=== PATIENT | male | born 1940 | race Caucasian/White ===

== ENCOUNTER → 2016-07-23 | Outpatient (CLI) | payer MEDICARE, OTHER ==
[~2016-07-23] MED LIST: ASPI81TA85 PO; AVAP300T23 PO; COQ-200C PO; CRES5TAB PO; HYDR25TAB; JANU100T PO; NADO40TA PO; NORV5TAB PO; XARE15TA PO
--- NOTE | 2016-07-23 13:57 | REP ---
Chest two views HISTORY: Bronchitis Comparison: 06/15/2016 Minimal peribronchial cuffing is present. The heart is normal in size. The pulmonary vasculature is normal in appearance. The bony structure is intact. IMPRESSION: There is minimal peribronchial cuffing consistent with asthma or bronchitis. Signed by Shyam Mcghee MD 07/23/2016 01:48 P
== END ==
LOC: M WUC 12:43
PROVIDERS: ATTEND Nurse Practitioner Family
DX: J42 Unspecified chronic bronchitis (principal); Z87.891 Personal history of nicotine dependence

== ENCOUNTER 2016-07-31 07:29 | Inpatient (IN) | payer MEDICARE, OTHER ==
[~2016-07-31] VITALS: Ht 175.3 cm; Wt 90.7 kg
[2016-07-31 08:45] LABS: BASO % 0.2 % (0.0-1.0); EOS # 0.2 K/mm3 (0.0-0.50); EOS % 0.6 % (0.0-3.0); LARGE UNSTAINED CELL # 0.1 K/mm3 (0.0-0.4); LARGE UNSTAINED CELL % 0.5 % (0.0-4.0); LYMPH % 4.1 % (24.0-44.0); MEAN CORPUSCULAR HEMOGLOBIN 31.2 pg (27.0-33.0); MEAN CORPUSCULAR HGB CONC 32.5 g/dl (32.0-36.5); MEAN CORPUSCULAR VOLUME 95.9 fl (80.0-96.0); MONO # 0.9 K/mm3 (0.0-0.8); MONO % 3.6 % (0.0-5.0); NEUTROPHILS # 22.8 K/mm3 (1.8-7.7); PLATELET COUNT, AUTOMATED 224 k/mm3 (150-450); RED CELL DISTRIBUTION WIDTH 13.2 % (11.5-14.5)
[2016-07-31] MEDS ORDERED: IPRATROPIUM 0.5MG/ALBUTEROL 2.5MG INH SOL UD 3ML (DUONEB)(J7620) As Ordered ONE ×2 (08:50→20:48)
[2016-07-31 09:10] LABS: ABG BASE EXCESS 2.9 (-2.0-2.0); ABG DEVICE NASAL CANN; ABG HCO3 27.4 MEQ/L (22.0-26.0); ABG PARTIAL PRESSURE CO2 41.4 mmHg (35.0-45.0); ABG PARTIAL PRESSURE O2 69.9 mmHg (75.0-100.0); ABG STANDARD HCO3 26.9 MEQ/L (22.0-26.0); ABG TOTAL CO2 28.6 MEQ/L (23.0-31.0); ABG pH (ARTERIAL) 7.438 UNITS (7.350-7.450)
[2016-07-31] MEDS ORDERED: HYDR25TAB PO (09:40)
[2016-07-31] MEDS ORDERED: PROA1AER INH (09:40)
[2016-07-31] MEDS ORDERED: AMLO10TA2 PO (09:40)
[2016-07-31] MEDS ORDERED: PRED10TA PO (09:40)
[2016-07-31] MEDS ORDERED: CEFD1CAP8 PO (09:40)
[2016-07-31] MEDS ORDERED: FLON1SPR (09:40)
[2016-07-31] MEDS ORDERED: MOXIFLOXACIN 400 MG/250 ML IV BAG (AVELOX) (J2280) As Ordered ONE (10:04)
[2016-07-31 10:11] LABS: CALCIUM LEVEL 10.1 MG/DL (8.8-10.2); CREATININE FOR GFR 1.79 MG/DL (0.70-1.30); GLOMERULAR FILTRATION RATE 39.4 (>42); POTASSIUM SERUM 4.4 MEQ/L (3.5-5.1)
[2016-07-31] MEDS ORDERED: ASPIRIN 81 MG CHEW TABLET As Ordered ONE (10:33)
--- NOTE | 2016-07-31 10:33 | REP ---
CHEST, TWO VIEWS: HISTORY: Shortness of breath. COMPARISON: 07/23/2016 Minimal peribronchial cuffing is present. Patchy density is present in the right lower lobe consistent with an infiltrate. The left lung is clear. The heart is normal in size. The pulmonary vasculature is normal in appearance. The bony structure is intact. IMPRESSION: Right lower lobe infiltrate. Signed by Shyam Mcghee MD 07/31/2016 10:34 A
--- NOTE | 2016-07-31 12:34 | REP ---
Bilateral lower extremity Duplex Doppler venous ultrasound: Real time compression and duplex Doppler interrogation of the bilateral lower extremity deep venous system is performed. Bilaterally, the common femoral, superficial femoral and popliteal veins are fully compressible with transducer pressure and demonstrate normal spontaneous and phasic flow, without evidence of deep venous thrombosis. Impression: No evidence of deep venous thrombosis of the bilateral lower extremity femoral popliteal venous system. There is a right popliteal cyst measuring 3.2 x 0.8 x 1.4 cm. Signed by Jonathan Dubose MD 07/31/2016 12:26 P
[2016-07-31] MEDS ORDERED: ONDANSETRON 4MG/2ML VIAL (J2405) IV PRN (16:30)
[2016-07-31] MEDS ORDERED: ALBUTEROL 90 MCG/ACT 8GM HFA INHALER INH PRN (17:30)
[2016-07-31] MEDS ORDERED: FLUTICASONE PROP 0.05% NASAL SPRAY 16 GM (FLONASE) PRN (17:30)
[2016-07-31] MEDS ORDERED: IPRATROPIUM 0.5MG/ALBUTEROL 2.5MG INH SOL UD 3ML (DUONEB)(J7620) NEB PRN (17:30)
[2016-07-31] MEDS ORDERED: NITROGLYCERIN 0.4 MG SUBL TABLET SL PRN (17:45)
[2016-07-31] MEDS ORDERED: GLUCOSE 4 GM CHEW TABLET PO PRN (18:15)
[2016-07-31] MEDS ORDERED: GLUCAGON FOR INJ 1 MG VIAL (J1610) SC PRN (18:15)
[2016-07-31] MEDS ORDERED: DEXTROSE 50% 50 ML SYRINGE IV PRN (18:15)
[2016-07-31] MEDS ORDERED: cefTRIAXone SOD 1 GM VIAL (J0696) As Ordered ONE (18:27)
[2016-07-31] MEDS ORDERED: AZITHROMYCIN INJ 500MG VIAL (J0456) As Ordered ONE (19:04)
[2016-07-31 19:10] LABS: MEAN CORPUSCULAR HEMOGLOBIN 31.3 pg (27.0-33.0); MEAN CORPUSCULAR HGB CONC 32.8 g/dl (32.0-36.5); MEAN CORPUSCULAR VOLUME 95.6 fl (80.0-96.0); RED CELL DISTRIBUTION WIDTH 14.1 % (11.5-14.5); WHITE BLOOD COUNT 18.5 K/mm3 (4.0-10.0)
[2016-07-31 19:17] LABS: CALCIUM LEVEL 9.5 MG/DL (8.8-10.2); CREATININE FOR GFR 1.9 MG/DL (0.70-1.30); GLOMERULAR FILTRATION RATE 36.8 (>42); POTASSIUM SERUM 4.4 MEQ/L (3.5-5.1)
--- NOTE | 2016-07-31 19:21 | HPE ---
DATE OF ADMISSION: 07/31/2016 PRIMARY CARE PHYSICIAN: Dr. Cadet CHIEF COMPLAINT: Shortness of breath. HISTORY OF THE PRESENT ILLNESS: The patient is a 76-year-old man who has had persistent rhinorrhea of clear discharge and cough while laying down for greater than 6 months. He has been seen by [facility] (ENT), urgent care on several occasions and his primary care provider. He has completed four courses of antibiotics. Never during any of these episodes has he ever experienced shortness of breath. However, over the last 1 week, he has had progressively worsening shortness of breath and dyspnea on exertion with less and less exertion. The patient was most recently seen by his primary care provider on 07/23/2016 and at that time, given his significant history of tobacco abuse, although he has no pulmonary function tests (PFTs) on file, he was given a course of cefdinir and prednisone. Following taking the prednisone, he was having episodes of shortness of breath as well as epigastric discomfort and as such, he stopped taking the prednisone but continued the antibiotic. Today, he has had 8 days of this. However, today his shortness of breath was so severe that it prompted him to present to the emergency room. At the present time, the patient denies any chest pressure. He denies any change in his cough quality, quantity. He denies any fevers, chills, any active nausea or vomiting. No diaphoresis, simply shortness of breath and dyspnea on exertion which are new for him. Over the past 1 week, he tells me that the shortness of breath has concerned to the point that he quit smoking cigarettes despite having a greater than 50 pack-year history. PAST MEDICAL/SURGICAL HISTORY: Known coronary artery disease, status post stent placement greater than 10 years ago in [place]. Lithotripsy. Prostatectomy. Hernia repair. Hypertension. Diabetes. Atrial fibrillation. HOME MEDICATIONS: - cefdinir 300 mg by mouth twice a day - Avapro 300 mg daily - prednisone 20 mg daily - Januvia 100 mg daily - albuterol 108 mcg inhaled four times a day as needed for shortness of breath - Norvasc 10 mg daily - aspirin 81 mg daily - Flonase one spray daily as needed for runny nose - hydrochlorothiazide 25 mg daily - Nadolol 40 mg daily - Xarelto 15 mg daily ALLERGIES: No known drug allergies. SOCIAL HISTORY: The patient is a former smoker, as mentioned above. He denies alcohol or illicit drug use. He lives with his . FAMILY HISTORY: Noncontributory. REVIEW OF SYSTEMS: Negative other than in the history of the present illness (HPI). PHYSICAL EXAMINATION: Blood pressure 152/79, pulse 94, respiratory rate 22, maximum temperature (T max ) 99.8, oxygen saturation 93% on 2 liters nasal cannula. When I take him off nasal cannula on room air, he remains 93%. GENERAL: He is a very pleasant, elderly, man lying in bed. He does not appear to be in any acute distress or discomfort. He is not tachycardic at the time of my examination. HEENT: Cranial nerves II-XII are grossly intact. He has moist mucous membranes. I do not appreciate any elevation of central venous pressure. CARDIOVASCULAR EXAM: S1, S2, regular. He is not tachycardic. RESPIRATORY EXAM: It is actually quite clear. I do not appreciate any wheeze. He has a mildly prolonged expiratory phase. No focal auscultatory irregularities. ABDOMINAL EXAM: Benign. EXTREMITIES: No clubbing, cyanosis or edema. LABORATORY STUDIES: WBC of 25, hemoglobin 15.3, hematocrit 47.2, platelet count 224. Chemistry panel: Sodium 140, potassium 4.4, chloride 101, bicarbonate 30, BUN 44, creatinine 1.7, unclear what the baseline is. Most recent was from many years ago; it was 1.4. Lactic acid 1.8. Troponin I was 8.7, a repeat 2 hours later was 8.4, 3 hours following that it was up to 11.0. CKs remain flat 129, 115, 122. Microbiology: A flu swab was done and is negative. Blood cultures are current pending. IMAGING: The patient had a duplex ultrasound of the lower extremities that revealed no evidence of a deep vein thrombosis (DVT). He had a chest x-ray that revealed right lower lobe infiltrate which is new. ASSESSMENT AND PLAN: This is a 76-year-old man presenting with dyspnea on exertion. Problems: 1. Dyspnea on exertion. A great deal of discussion has been had between myself, Dr. Urbano, Dr. Urban, Dr. Ann and Dr. Grove in [place] regarding this particular patient. Dr. Ann and I are concerned that the patient is having a primary coronary event and that given his rising troponin, it is evolving. His EKG is not suggestive of this; however, his symptoms of shortness of breath are certainly concerning as an anginal equivalent and given his history, I suspect unstable angina. Conversely, I agree with Dr. Urban and Dr. Grove and Dr. Urbano that the patient likely has acute pneumonia. Both feel that the patient would not benefit from a cardiac catheterization and does not need a cardiac catheterization at this time. They feel that the elevated white count and the infiltrate even without fever, tachycardia or cough are more suggestive of pneumonia as a primary process. They do agree the patient has coronary artery disease and would likely benefit from cardiac catheterization prior to discharge home. However, they feel that he would benefit from treatment of pneumonia first. The patient has already gotten appropriate antibiotic therapy and has already been on steroids. He may not be far from his baseline in terms of mild hypoxia, he is not having an oxygen requirement at rest, and he has advanced tobacco use history, I will actually hold off on providing with any further steroids. I will check a BNP, repeat CBC at this time. Will continue to trend his cardiac enzymes. I will Treat his PNA in the form of ceftriaxone and azithromycin. Although he has completed many courses of these in the past. Cardiac management for the patient's coronary disease was discussed with Dr. Grove who suggested continuing aspirin and Pradaxa, did also recommend a STAT echocardiogram, although he did reiterate that even if there was a large wall motion deficit, it would not change the management. It was unclear to me as to the necessity of completing this STAT. Dr. Urban has signed this patient out to Dr. Carmona who will be evaluating the patient later on this evening. The patient was on an aspirin. He is already on a beta dyana. I am starting him on a statin, and we are continuing his Xarelto, provide with nitro sublingual as needed. Should the patient develop chest pain, worsening shortness of breath or cardiac enzymes continue to trend upward and a repeat CBC reveal a resolving leukocytosis, I think the patient would benefit from cardiac catheterization. I have spent a significant amount of time discussing this with Dr. Urbano, Dr. Urban, Dr. Ann and the patient. 2. Hypertension. We will hold his irbesartan. We will continue with Norvasc, hydrochlorothiazide and Nadolol. 3. Kidney disease, unclear of the acuity of this. For now, we will hold his irbesartan. 4. Type 2 diabetes. We will hold the patient's Januvia, place him on a 2-gram sodium consistent carbohydrate diet. Will check fingersticks and place him on sliding scale insulin. 5. Deep vein thrombosis (DVT) prophylaxis. The patient is on Xarelto. DISPOSITION: The patient is admitted to the progressive care unit. His clinical status remains guarded. He will be on Dr. Marshall's service who will continue following the patient tomorrow at 7:00 a.m. BERNADETTE
--- NOTE | 2016-07-31 19:27 | ECGEPIP ---
Stationary ECG Study [facility] - ED Test Date: 2016-07-31 Pat Name: PHIL LOPEZ Department: Room: - Gender: M Import Clerk: maryana : 1940 Requested By: RIGOBERTO ALMANZA Order Number: [id number] Reading MD: Alejandra Valentin Measurements Intervals [place] Rate: 125 P: MD: 0 QRS: 22 QRSD: 104 T: 149 QT: 278 QTc: 401 Interpretive Statements ATRIAL FIBRILLATION WITH RAPID VENTRICULAR RESPONSE MARKED ST DEPRESSION, CONSIDER SUBENDOCARDIAL INJURY NO PRIOR FOR COMPARISON Electronically Signed On 07-31-2016 19:27:21 EST by Alejandra Valentin
[2016-07-31 19:31] LABS: INR 1.12
--- NOTE | 2016-07-31 19:31 | ECGEPIP ---
Stationary ECG Study [facility] - ED Test Date: 2016-07-31 Pat Name: PHIL LOPEZ Department: Room: - Gender: M Manager Nc: maryana : 1940 Requested By: RIGOBERTO ALMANZA Order Number: [id number] Reading MD: Alejandra Valentin Measurements Intervals [place] Rate: 91 P: CO: 0 QRS: 17 QRSD: 102 T: 163 QT: 378 QTc: 465 Interpretive Statements ATRIAL FIBRILLATION MARKED ST DEPRESSION, CONSIDER SUBENDOCARDIAL INJURY DECREASED RATE 07/31/16 8:49 Electronically Signed On 07-31-2016 19:31:21 EST by Alejandra Valentin
--- NOTE | 2016-07-31 20:32 | ECHO ---
DATE OF PROCEDURE: 07/31/2016 REFERRING PHYSICIAN: Dr. Urbano, ER PATIENT LOCATION: Emergency room, room #5. REASON FOR ECHOCARDIOGRAM: Abnormal EKG. 2D MEASUREMENTS: IVS: 1.3 cm LV: 4.9 cm LVPW: 0.82 cm LA: 3.7 cm Aorta: 3.3 cm IVC: 2.3 cm DOPPLER MEASUREMENTS: Peak velocity across the aortic valve: 0.92 m/s Peak velocity across the LVOT: 0.43 m/s Mitral E: 0.9 Maximum tricuspid valve velocity: 2.4 m/s 2D COMMENTS: 1. Normal left ventricular size with probably mildly increased left ventricular wall thickness. Left ventricular systolic function is moderately depressed with an estimated global left ventricular systolic ejection fraction of 40%. The apex including anteroapical septum appeared to be markedly hypokinetic. 2. Normal left atrium. Subjectively, the left atrium appeared to be mildly enlarged. Normal right atrium and right ventricle. 3. The atrial septum appeared to be normal without evidence of defect or shunt. 4. Normal aortic root. 5. Trace pericardial effusion noted, no evidence of cardiac tamponade. This also may be related to a fat pad. It was seen mainly anteriorly. 6. Mildly calcified aortic valve with normal leaflet excursion. Mildly calcified mitral annulus with normal anterior mitral valve leaflet motion. Normal tricuspid valve. The pulmonic valve and proximal pulmonary artery branches were not well visualized. 7. The inferior vena cava was mildly enlarged, central venous pressure might be elevated. DOPPLER: It detects trace aortic regurgitation, mild to moderate mitral regurgitation and trace to mild tricuspid regurgitation. The calculated pulmonary artery systolic pressure varies between 30 to 40 mmHg. Assessment of the left ventricular diastolic function was limited. IMPRESSION: 1. Mild to moderate global left ventricular systolic dysfunction with regional wall motion abnormalities consistent with underlying coronary artery disease. Not mentioned above, the inferior wall appeared also to be hypokinetic. Assessment of the left ventricular diastolic function was limited. 2. Aortic valve sclerosis with trace aortic regurgitation, but no aortic stenosis. 3. Mitral annulus calcification with mildly enlarged left atrium and mild to moderate mitral regurgitation. 4. Trace to mild tricuspid regurgitation with mild pulmonary hypertension. 5. Possible trace pericardial effusion.
[2016-07-31 20:43] LABS: MEAN CORPUSCULAR HGB CONC 32.4 g/dl (32.0-36.5); MEAN CORPUSCULAR VOLUME 95.9 fl (80.0-96.0); RED CELL DISTRIBUTION WIDTH 14.2 % (11.5-14.5); WHITE BLOOD COUNT 19.8 K/mm3 (4.0-10.0)
[2016-07-31] MEDS: IPRATROPIUM 0.5MG/ALBUTEROL 2.5MG INH SOL UD 3ML (DUONEB)(J7620) NEB SCH (20:52)
[2016-07-31] MEDS: HumaLOG INSULIN (NovoLOG) PER UNIT SC SCH (21:00)
--- NOTE | 2016-07-31 21:22 | EDDOCDS ---
Nurse's Notes [facility] Name: Booker Moore Age: 76 yrs Sex: Male : 1940 Arrival Date: 07/31/2016 Time: 07:29 Bed 5 Private MD: Diagnosis: Pneumonia, unspecified organism Presentation: 07/31 07:40 Presenting complaint: Patient states: diagnosed with bronchitis a month ago at [address] different abx since and symptoms persist. currently on cefdinir and prednisone. Adult Sepsis Screening: The patient does not have new or worsening altered mentation. Patient's respiratory rate is less than 22. Systolic blood pressure is greater than 100. Patient has a qSOFA score of 0- Negative Sepsis Screen. Suicide/Homicide risk assessment- the patient denies having any suicidal and/or homicidal ideations and does not present with any other emotional, behavioral or mental health complaints. Status: Patient is not a consumer services advisor or dependent. Transition of care: patient was not received from another setting of care. 07:40 Acuity: MATRIN Level 2 [facility] 07:40 Method Of Arrival: Walkin/Carried/Asstd pml Triage Assessment: 07:44 General: Appears in no apparent distress. Pain: Denies pain. Respiratory: Onset: The pml symptoms/episode began/occurred gradually. Historical: - Allergies: no known allergies; - Home Meds: 1. amlodipine 10 mg Oral tab 1 tab once daily 2. irbesartan 300 mg oral tab 1 tab once daily 3. cefdinir 300 mg Oral cap 1 cap every 12 hours 4. prednisone 10 mg Oral tab once daily 5. Xarelto 15 mg oral tab daily 6. aspirin 81 mg Oral chew 1 tab once daily 7. hydrochlorothiazide 25 mg Oral tab 1 tab once daily 8. nadolol 40 mg oral tab 1 tab once daily 9. Januvia 100 mg oral tab 1 tab once daily - PMHx: Hypertension; Diabetes - NIDDM: controlled; Atrial Fib; - PSHx: Lithotripsy; Coronary Stents; Prostatectomy; Hernia repair; - Social history: Smoking status: Patient states former smoker of tobacco. No barriers to communication noted, The patient speaks fluent Luxembourgish, Speaks appropriately for age. - Family history: Not pertinent. - : The pt / caregiver states he / she is on anticoagulants: Xarelto Home medication list is obtained from the patient. - Exposure Risk Screening:: None identified. Screenin:57 Screening information is obtained from the patient. Fall risk: No risks identified. kr3 Assistance ADL's: requires no assistance with activities of daily living. Abuse/DV Screen: The patient / caregiver reports he/she is: not in a situation that causes fear, pain or injury. Nutritional screening: On diabetic diet. home support is adequate. 16:04 Advance Directives: Currently, there is no health care proxy. There is no living will. kr3 Assessment: 07:58 General: Appears in no apparent distress. Pain: Denies pain. EENT: Reports post nasal kr3 drainage. Cardiovascular: Chest pain is denied. Respiratory: Airway is patent Respiratory effort is even, Breath sounds are diminished bilaterally. Reports shortness of breath cough that is. Derm: Skin is normal. 08:30 Respiratory: Airway is patent Respiratory effort is even. kr3 08:30 Reassessment: Patient appears in no apparent distress at this time. General: Behavior kr3 is cooperative. 09:41 Reassessment: Patient appears in no apparent distress at this time. aware plan is for rust admission. Cardiovascular:. Respiratory: Airway is patent Respiratory effort is even. 10:36 Reassessment: Patient appears in no apparent distress at this time. Patient denies pain kr3 at this time. Neurological: No deficits noted. Respiratory: Respiratory effort is even, unlabored. 11:40 Reassessment: Patient appears in no apparent distress at this time. Pain: Denies pain. kr3 Respiratory: Respiratory effort is even, unlabored. 12:47 Reassessment: Patient appears in no apparent distress at this time. Neurological: No kr3 deficits noted. Respiratory: Respiratory effort is even. Derm: Skin is normal. 13:45 Reassessment: Patient appears in no apparent distress at this time. hospitalist has kr3 spoken with patient regarding admission. 14:30 Reassessment: Patient denies pain at this time. kr3 14:30 Reassessment: Patient appears in no apparent distress at this time. General: Behavior kr3 is cooperative, pleasant. 15:20 Reassessment: Patient appears in no apparent distress at this time. Neurological: No kr3 deficits noted. Respiratory: Respiratory effort is even, unlabored. 16:04 Reassessment: Patient appears in no apparent distress at this time. RESTING WITH EYES kr3 CLOSED. 16:47 Reassessment: patient having echocardiogram. kr3 17:30 Reassessment: Patient appears in no apparent distress at this time. aware plan is for kr3 admission, that room is unavailable at this time. Respirations unlabored. No complaints. 19:30 Reassessment: Patient appears in no apparent distress at this time. Patient denies pain jp6 at this time. General: Appears in no apparent distress, comfortable, Behavior is appropriate for age, cooperative. Pain: Denies pain. Neurological: No deficits noted. Level of Consciousness is awake, alert, Oriented to person, place, time. EENT: No deficits noted. Cardiovascular: No deficits noted. Capillary refill < 3 seconds Heart tones S1 S2 Rhythm is sinus rhythm No ectopy. Chest pain is denied. Respiratory: Airway is patent Respiratory effort is even, unlabored, Respiratory pattern is regular, symmetrical, Breath sounds are coarse Breath sounds with rhonchi Breath sounds are diminished bilaterally. Reports shortness of breath on exertion cough that is. GI: No deficits noted. : No deficits noted. Derm: Skin is pink, warm & dry. Derm: No deficits noted. 20:30 Reassessment: Patient appears in no apparent distress at this time. Patient denies pain jp6 at this time. General: waiting to go upstairs to PCU.. Vital Signs: 07:44 BP 163 / 102; Pulse 100; Resp 22; Pulse Ox 89% on R/A; Weight 90.72 kg; Height 5 ft. 9 pml in. (175.26 cm); Pain 0/10; 07:56 Temp 99.8(TE); Pulse Ox 94% on 3 lpm NC; kr3 08:35 BP 155 / 96; Pulse 108; Resp 18; Pulse Ox 97% on 2 lpm NC; kr3 09:19 BP 147 / 100 (auto/); kr3 09:19 Pulse 116 MON; Pulse Ox 93% on 2 lpm NC; kr3 09:49 BP 165 / 93 (auto/); kr3 09:49 Pulse 96 MON; Pulse Ox 90% on 2 lpm NC; kr3 10:38 Pulse 94; Resp 18; Pulse Ox 91% on 2.5 lpm NC; kr3 11:11 BP 116 / 72 (auto/); kr3 11:11 Pulse 88 MON; Resp 18; Pulse Ox 93% on 2.5 lpm NC; kr3 11:19 BP 137 / 71 (auto/); kr3 11:19 Pulse 90 MON; Resp 18; Temp 97.6(O); Pulse Ox 92% on 2.5 lpm NC; kr3 11:49 BP 141 / 80 (auto/); kr3 11:49 Pulse 94 MON; Pulse Ox 90% on 2.5 lpm NC; kr3 12:19 BP 122 / 74 (auto/); kr3 12:19 Pulse 86 MON; Pulse Ox 2.5 lpm NC; kr3 12:49 BP 152 / 79 (auto/); kr3 12:49 Pulse 94 MON; Pulse Ox 93% on 2.5 lpm NC; kr3 15:10 Pulse 86 MON; kr3 16:02 BP 126 / 87 (auto/); kr3 16:32 BP 159 / 94 (auto/); kr3 16:32 Pulse 108 MON; Resp 16; Temp 96.7(O); kr3 17:02 BP 141 / 86 (auto/); kr3 17:02 Pulse 82 MON; kr3 17:32 BP 155 / 72 (auto/); kr3 17:32 Pulse 82 MON; kr3 19:32 BP 132 / 80 (auto/); jp6 19:32 Pulse 126 MON; Pulse Ox 96% ; jp6 19:52 Pulse 112 MON; Pulse Ox 95% ; jp6 20:02 BP 120 / 76 (auto/); jp6 20:02 Pulse 84 MON; jp6 21:09 BP 127 / 74; Pulse 92; Resp 20; Temp 97.1(O); Pulse Ox 93% on 4 lpm NC; Pain 0/10; jmv 07:44 Body Mass Index 29.53 (90.72 kg, 175.26 cm) pml Vitals: 07:46 Log In Time: July 31, 2016 at 07:30. pml ED Course: 07:31 Patient visited by Margi Aleman Reg. hs2 07:31 Patient moved to Waiting hs2 07:41 Triage Initiated pml 07:46 Patient visited by Michelle Moreno,MUNA. pml 07:46 Nely Gutierrez,MUNA is Primary Nurse. pml 07:46 Patient moved to 5 pml 07:47 Danette Perdomo DO is PHCP. jo4 07:47 Alejandra Valentin MD is Attending Physician. jo4 07:53 Patient visited by Danette Perdomo DO. jo4 07:53 Patient visited by Danette Perdomo DO. jo4 07:57 The patient / caregiver is instructed regarding the plan of care and ED course. kr3 Accompanied by Family Member, Patient has correct armband on for positive identification. Placed in gown. Bed in low position. Call light in reach. Side rails up X 1. site monitor on. Pulse ox on. NIBP on. 07:57 O2 via nasal cannula \T\ 3L/min. kr3 08:16 [facility] [place] Agreement was scanned into [employer] and attached to record. lg 08:34 Patient visited by Nely Gutierrez RN. kr3 08:34 -Blood Culture Sent. kr3 08:34 BMP Sent. kr3 08:34 CBC with Diff Sent. kr3 08:35 Inserted saline lock: 20 gauge in right hand and blood collected. The patient tolerated kr3 the procedure well. O2 via nasal cannula \T\ 2L/min. 08:45 CARDIAC MARKER PANEL Sent. kr3 08:53 EKG done. Reviewed by Danette Perdomo DO. jrd 08:54 Patient visited by Steffen Oneill PCA. jrd 09:31 Lactic Acid (Dubose tube on ice) Sent. kr3 09:40 Patient visited by Nely Gutierrez RN. kr3 10:14 Patient visited by Nely Gutierrez RN. kr3 10:14 Diet tray given. kr3 10:45 Chest, 2 View (pa\E\lat) Returned. EDMS 11:03 Patient visited by Nely Gutierrez RN. kr3 11:36 Patient visited by Steffen Oneill PCA. jrd 11:36 EKG done. (by ED staff). Reviewed by Danette Perdomo DO. jrd 11:40 TROPONIN Sent. kr3 11:40 CARDIAC INJURY PROFILE Sent. kr3 11:50 Patient moved to Ultrasound sm5 12:20 Patient moved to 5 sm5 12:47 Patient visited by Nely Gutierrez RN. kr3 13:02 Ultrasound Bilateral LE R/O DVT Returned. EDMS 13:45 Patient visited by Nely Gutierrez,MUNA. kr3 13:49 Darling Sierra assistant professor of physics. nq 14:46 Patient visited by Catrachita Delgadillo. nb2 16:04 Patient visited by Nely Gutierrez,MUNA. kr3 16:06 No procedures done that require assistance. kr3 16:31 Darling Sierra is Hospitalizing Provider. jo4 18:13 Diet tray given. kr3 19:01 Primary Nurse role handed off by Nely Gutierrez,MUNA kr3 19:14 Taty Andrews,RN is Primary Nurse. jp6 19:14 Patient visited by Taty Andrews,MUNA. jp6 19:41 Notified private physician of abnormal lab values. Report at this time is made to mikey Pabon. Trop 12.2. 19:42 EKG-ADULT Returned. EDMS 19:42 ECG WITH READING ER PHYS Returned. EDMS 20:38 ECHOCARDIOGRAM,DOPPLER/COLOR FLOW Returned. EDMS 21:12 Patient visited by Renzo Chandler PCA. cinthya Administered Medications: 09:12 Drug: Albuterol-Ipratropium 3 ml [ipratropium-albuterol 0.5 mg-3 mg(2.5 mg base)/3 mL js nebulization soln (3 mL)] Route: Inhalation; 10:09 Drug: Moxifloxacin 400 mg [moxifloxacin 400 mg/250 mL-sodium chloride(iso) intravenous kr3 piggyback] Route: IV; Rate: 400 mg/hr; Infused Over: 60 mins; Site: right hand; 11:13 Follow up: IV Status: Completed infusion; IV Intake: 250ml kr3 10:35 Drug: Aspirin 324 mg [aspirin 81 mg chewable tablet (4 tabs)] Route: PO; kr3 18:36 Drug: cefTRIAXone 1 grams [ceftriaxone 1 gram solution for injection] Route: IVPB; kr3 Infused Over: 30 mins; Site: right hand; 19:15 Drug: azithromycin 500 mg [azithromycin 500 mg intravenous solution] Route: IVPB; jp6 Infused Over: 1 hrs; Site: right hand; Intake: 11:13 IV: 250.00ml; Total: 250.00ml. kr3 RT: 09:12 ABG's drawn from left brachial artery pressure held for 5 minuntes no bleeding noted js pressure bandage applied specimen sent pt. tolerated well. Initial Med Neb Given as ordered Patient was instructed and evaluated on procedure Patient tolerated procedure well without adverse effect. O2 via nasal cannula \T\ 2L/min. Respiratory: Breath sounds are coarse bilaterally. Order Results: Lab Order: CBC with Diff; SPEC'M 07/31/16 08:31 Test: WHITE BLOOD COUNT; Value: 25.0; Range: 4.0-10.0; Abnormal: Above high normal; Units: K/mm3; Status: F Test: RED BLOOD COUNT; Value: 4.92; Range: 4.30-6.10; Units: M/mm3; Status: F Test: HEMOGLOBIN; Value: 15.3; Range: 14.0-18.0; Units: g/dl; Status: F Test: HEMATOCRIT; Value: 47.2; Range: 42.0-52.0; Units: %; Status: F Test: MEAN CORPUSCULAR VOLUME; Value: 95.9; Range: 80.0-96.0; Units: fl; Status: F Test: MEAN CORPUSCULAR HEMOGLOBIN; Value: 31.2; Range: 27.0-33.0; Units: pg; Status: F Test: MEAN CORPUSCULAR HGB CONC; Value: 32.5; Range: 32.0-36.5; Units: g/dl; Status: F Test: RED CELL DISTRIBUTION WIDTH; Value: 13.2; Range: 11.5-14.5; Units: %; Status: F Test: PLATELET COUNT, AUTOMATED; Value: 224; Range: 150-450; Units: k/mm3; Status: F Test: NEUTROPHILS %; Value: 91.0; Range: 36.0-66.0; Abnormal: Above high normal; Units: %; Status: F Test: LYMPH %; Value: 4.1; Range: 24.0-44.0; Abnormal: Below low normal; Units: %; Status: F Test: MONO %; Value: 3.6; Range: 0.0-5.0; Units: %; Status: F Test: EOS %; Value: 0.6; Range: 0.0-3.0; Units: %; Status: F Test: BASO %; Value: 0.2; Range: 0.0-1.0; Units: %; Status: F Test: LARGE UNSTAINED CELL %; Value: 0.5; Range: 0.0-4.0; Units: %; Status: F Test: NEUTROPHILS #; Value: 22.8; Range: 1.8-7.7; Abnormal: Above high normal; Units: K/mm3; Status: F Test: LYMPH #; Value: 1.0; Range: 1.5-4.5; Abnormal: Below low normal; Units: K/mm3; Status: F Test: MONO #; Value: 0.9; Range: 0.0-0.8; Abnormal: Above high normal; Units: K/mm3; Status: F Test: EOS #; Value: 0.2; Range: 0.0-0.50; Units: K/mm3; Status: F Test: BASO #; Value: 0.0; Range: 0.0-0.2; Units: K/mm3; Status: F Test: LARGE UNSTAINED CELL #; Value: 0.1; Range: 0.0-0.4; Units: K/mm3; Status: F Lab Order: [facility]; SPEC'M 07/31/16 09:38 Test: GLUCOSE, FASTING; Value: 222; Range: 83-110; Abnormal: Above high normal; Units: MG/DL; Status: F Test: BLOOD UREA NITROGEN; Value: 44; Range: 7-18; Abnormal: Above high normal; Units: MG/DL; Status: F Test: CREATININE FOR GFR; Value: 1.79; Range: 0.70-1.30; Abnormal: Above high normal; Units: MG/DL; Status: F Test: GLOMERULAR FILTRATION RATE; Value: 39.4; Range: >42; Abnormal: Below low normal; Status: F Test: SODIUM LEVEL; Value: 140; Range: 136-145; Units: MEQ/L; Status: F Test: POTASSIUM SERUM; Value: 4.4; Range: 3.5-5.1; Units: MEQ/L; Status: F Test: CHLORIDE LEVEL; Value: 101; Range: 98-107; Units: MEQ/L; Status: F Test: CARBON DIOXIDE LEVEL; Value: 30; Range: 21-32; Units: MEQ/L; Status: F Test: ANION GAP; Value: 9; Range: 8-16; Units: MEQ/L; Status: F Test: CALCIUM LEVEL; Value: 10.1; Range: 8.8-10.2; Units: MG/DL; Status: F Test Note: ; Units are mL/min/1.73 m2 Chronic Kidney Disease Staging per NKF: Stage I & II GFR >=60 Normal to Mildly Decreased Stage III GFR 30-59 Moderately Decreased Stage IV GFR 15-29 Severely Decreased Stage V GFR <15 Very Little GFR Left ESRD GFR <15 on PHARMACY SALESPERSON Lab Order: -Arterial Blood Gas; SPEC'M 07/31/16 09:05 Test: ABG pH (ARTERIAL); Value: 7.438; Range: 7.350-7.450; Units: UNITS; Status: F Test: ABG PARTIAL PRESSURE CO2; Value: 41.4; Range: 35.0-45.0; Units: mmHg; Status: F Test: ABG PARTIAL PRESSURE O2; Value: 69.9; Range: 75.0-100.0; Abnormal: Below low normal; Units: mmHg; Status: F Test: ABG TOTAL CO2; Value: 28.6; Range: 23.0-31.0; Units: MEQ/L; Status: F Test: ABG HCO3; Value: 27.4; Range: 22.0-26.0; Abnormal: Above high normal; Units: MEQ/L; Status: F Test: ABG BASE EXCESS; Value: 2.9; Range: -2.0-2.0; Abnormal: Above high normal; Status: F Test: ABG STANDARD HCO3; Value: 26.9; Range: 22.0-26.0; Abnormal: Above high normal; Units: MEQ/L; Status: F Test: ABG O2 SATURATION; Value: 94.3; Range: 95.0-99.0; Abnormal: Below low normal; Units: %; Status: F Test: ABG DEVICE; Value: NASAL JOEY; Status: F Lab Order: CARDIAC MARKER PANEL; SPEC07/31/16 09:38 Test: CPK CREATINE PHOSPHOKINASE; Value: 129; Range: 39-308; Units: U/L; Status: F Test: CK-MB VALUE MASS; Value: 11.5; Range: 0.0-3.6; Abnormal: Above high normal; Units: NG/ML; Status: F Test: MB/CK RELATIVE INDEX; Value: 8.91; Range: < OR =4; Abnormal: Above high normal; Status: F Test: TROPONIN I; Value: 8.74; Range: < 0.10; Abnormal: Above upper panic limits; Units: NG/ML; Status: F Test Note: ; DIAGNOSIS CRITERIA MMB ng/ml Relative Index (RI) NON-AMI < or = 5 N/A DUBOSE ZONE > 5 < or = 4 AMI > 5 > 4 Lab Order: Lactic Acid (Dubose tube on ice); SPEC'M 07/31/16 09:38 Test: LACTIC ACID LEVEL, LACTATE; Value: 1.8; Range: 0.4-2.0; Units: MMOL/L; Status: F Lab Order: -Influenza A&B Rapid Antigen - Nose; SPEC'M 07/31/16 09:34 Test: INFLUENZA A RAPID SCR by ICA; Value: INFLUENZA A RESULTS NEGATIVE; Status: F Test: INFLUENZA A RAPID SCR by ICA; Value: Comments:; Status: F Test: INFLUENZA B RAPID SCR by ICA; Value: INFLUENZA B RESULTS NEGATIVE; Status: F Test Note: ; The Influenza test is a direct rapid immunoassay for the qualitative detection of Influenza viral antigen. Cell culture (Viral Culture) testing should be considered to confirm NEGATIVE results and to assist in detecting other viruses that can provide similar clinical symptoms. Please contact the lab within 24 hours [phone]) if confirmatory testing is desired. Lab Order: CARDIAC INJURY PROFILE; SPEC'M 07/31/16 11:38 Test: CPK CREATINE PHOSPHOKINASE; Value: 115; Range: 39-308; Units: U/L; Status: F Test: CK-MB VALUE MASS; Value: 10.3; Range: 0.0-3.6; Abnormal: Above high normal; Units: NG/ML; Status: F Test: MB/CK RELATIVE INDEX; Value: 8.95; Range: < OR =4; Abnormal: Above high normal; Status: F Test Note: ; DIAGNOSIS CRITERIA MMB ng/ml Relative Index (RI) NON-AMI < or = 5 N/A DUBOSE ZONE > 5 < or = 4 AMI > 5 > 4 Lab Order: TROPONIN; SPEC'M 07/31/16 11:38 Test: TROPONIN I; Value: 8.49; Range: < 0.10; Abnormal: Above upper panic limits; Units: NG/ML; Status: F Test Note: ; Troponin I Reference Interval for Siemens [place] LOCI: 99th Percentile= 0.00-0.045 ng/ml Risk Stratification: <= 0.10 ng/ml Decreased Risk for Adverse Clinical Events. 0.10-1.50 ng/ml Increased Risk for Adverse Clinical Events. Evaluation of additional criterion and/or repeat testing in 2-6 hours is suggested to rule out myocardial damage. >= 1.50 ng/ml Indicative of Myocardial Injury. Lab Order: Cardiac Marker Panel; SPEC'M 07/31/16 14:34 Test: CPK CREATINE PHOSPHOKINASE; Value: 122; Range: 39-308; Units: U/L; Status: F Test: CK-MB VALUE MASS; Value: 12.5; Range: 0.0-3.6; Abnormal: Above high normal; Units: NG/ML; Status: F Test: MB/CK RELATIVE INDEX; Value: 10.24; Range: < OR =4; Abnormal: Above high normal; Status: F Test: TROPONIN I; Value: 11.00; Range: < 0.10; Abnormal: Critical Delta High; Units: NG/ML; Status: F Test Note: ; DIAGNOSIS CRITERIA MMB ng/ml Relative Index (RI) NON-AMI < or = 5 N/A DUBOSE ZONE > 5 < or = 4 AMI > 5 > 4 Lab Order: COMPLETE BLOOD COUNT; SPEC'M 07/31/16 20:36 Test: WHITE BLOOD COUNT; Value: 19.8; Range: 4.0-10.0; Abnormal: Above high normal; Units: K/mm3; Status: F Test: RED BLOOD COUNT; Value: 4.53; Range: 4.30-6.10; Units: M/mm3; Status: F Test: HEMOGLOBIN; Value: 14.1; Range: 14.0-18.0; Units: g/dl; Status: F Test: HEMATOCRIT; Value: 43.4; Range: 42.0-52.0; Units: %; Status: F Test: MEAN CORPUSCULAR VOLUME; Value: 95.9; Range: 80.0-96.0; Units: fl; Status: F Test: MEAN CORPUSCULAR HEMOGLOBIN; Value: 31.0; Range: 27.0-33.0; Units: pg; Status: F Test: MEAN CORPUSCULAR HGB CONC; Value: 32.4; Range: 32.0-36.5; Units: g/dl; Status: F Test: RED CELL DISTRIBUTION WIDTH; Value: 14.2; Range: 11.5-14.5; Units: %; Status: F Test: PLATELET COUNT, AUTOMATED; Value: 216; Range: 150-450; Units: k/mm3; Status: F Lab Order: ERYTHROCYTE SEDIMENTATION RATE; [facility]07/31/16 18:49 Test: ERYTHROCYTE SEDIMENTATION RATE; Value: 19; Range: 0-20; Units: mm/hr; Status: F Lab Order: C REACTIVE PROTEIN QUANTITATIV; 07/31/16 18:49 Test: C REACTIVE PROTEIN QUANTITATIV; Value: 9.44; Range: 0.00-0.30; Abnormal: Above high normal; Units: MG/DL; Status: F Lab Order: PROTHROMBIN TIME PROFILE\E\INR; [facility]07/31/16 18:49 Test: PROTHROMBIN TIME; Value: 14.5; Range: 12.3-14.5; Units: SECONDS; Status: F Test: INR; Value: 1.12; Status: F Test Note: ; THERAPUTIC HUMAN INR VALUES INDICATIONS NORMAL RANGES PROPHYLAXIS/TREATMENT OF: VENOUS THROMBOSIS 2.0-3.0 PULMONARY EMBOLISM 2.0-3.0 PREVENTION OF SYSTEMIC EMBOLISM FROM: TISSUE HEART VALVES 2.0-3.0 ACUTE MYOCARDIAL INFARCTION 2.0-3.0 VALVULAR HEART DISEASE 2.0-3.0 ATRIAL FIBRILLATION 2.0-3.0 MECHANICAL VALVES(HIGH RISK) 2.5-3.5 RECURRENT MYOCARDIAL INFARCTION 2.5-3.5 Lab Order: BRAIN NATIURETIC PEPTIDE; [facility]07/31/16 18:49 Test: BRAIN NATRIURETIC PEPTIDE; Value: 2000; Range: <100; Abnormal: Above high normal; Units: PG/ML; Status: F Lab Order: COMPLETE BLOOD COUNT; [facility] 07/31/16 18:49 Test: WHITE BLOOD COUNT; Value: 18.5; Range: 4.0-10.0; Abnormal: Above high normal; Units: K/mm3; Status: F Test: RED BLOOD COUNT; Value: 4.70; Range: 4.30-6.10; Units: M/mm3; Status: F Test: HEMOGLOBIN; Value: 14.7; Range: 14.0-18.0; Units: g/dl; Status: F Test: HEMATOCRIT; Value: 44.9; Range: 42.0-52.0; Units: %; Status: F Test: MEAN CORPUSCULAR VOLUME; Value: 95.6; Range: 80.0-96.0; Units: fl; Status: F Test: MEAN CORPUSCULAR HEMOGLOBIN; Value: 31.3; Range: 27.0-33.0; Units: pg; Status: F Test: MEAN CORPUSCULAR HGB CONC; Value: 32.8; Range: 32.0-36.5; Units: g/dl; Status: F Test: RED CELL DISTRIBUTION WIDTH; Value: 14.1; Range: 11.5-14.5; Units: %; Status: F Test: PLATELET COUNT, AUTOMATED; Value: 202; Range: 150-450; Units: k/mm3; Status: F Lab Order: TROPONIN; SPEC'M 07/31/16 18:49 Test: TROPONIN I; Value: 12.20; Range: < 0.10; Abnormal: Above upper panic limits; Units: NG/ML; Status: F Test Note: ; Troponin I Reference Interval for Siemens [place] LOCI: 99th Percentile= 0.00-0.045 ng/ml Risk Stratification: <= 0.10 ng/ml Decreased Risk for Adverse Clinical Events. 0.10-1.50 ng/ml Increased Risk for Adverse Clinical Events. Evaluation of additional criterion and/or repeat testing in 2-6 hours is suggested to rule out myocardial damage. >= 1.50 ng/ml Indicative of Myocardial Injury. Lab Order: BASIC METABOLIC PROFILE; SPEC'M 07/31/16 18:49 Test: GLUCOSE, FASTING; Value: 242; Range: 83-110; Abnormal: Above high normal; Units: MG/DL; Status: F Test: BLOOD UREA NITROGEN; Value: 51; Range: 7-18; Abnormal: Above high normal; Units: MG/DL; Status: F Test: CREATININE FOR GFR; Value: 1.90; Range: 0.70-1.30; Abnormal: Above high normal; Units: MG/DL; Status: F Test: GLOMERULAR FILTRATION RATE; Value: 36.8; Range: >42; Abnormal: Below low normal; Status: F Test: SODIUM LEVEL; Value: 139; Range: 136-145; Units: MEQ/L; Status: F Test: POTASSIUM SERUM; Value: 4.4; Range: 3.5-5.1; Units: MEQ/L; Status: F Test: CHLORIDE LEVEL; Value: 99; Range: 98-107; Units: MEQ/L; Status: F Test: CARBON DIOXIDE LEVEL; Value: 35; Range: 21-32; Abnormal: Above high normal; Units: MEQ/L; Status: F Test: ANION GAP; Value: 5; Range: 8-16; Abnormal: Below low normal; Units: MEQ/L; Status: F Test: CALCIUM LEVEL; Value: 9.5; Range: 8.8-10.2; Units: MG/DL; Status: F Test Note: ; Units are mL/min/1.73 m2 Chronic Kidney Disease Staging per NKF: Stage I & II GFR >=60 Normal to Mildly Decreased Stage III GFR 30-59 Moderately Decreased Stage IV GFR 15-29 Severely Decreased Stage V GFR <15 Very Little GFR Left ESRD GFR <15 on PHARMACY SALESPERSON Radiology Order: Chest, 2 View (pa\E\lat) Test: Chest, 2 View (pa\E\lat) REASON FOR EXAMINATION: Shortness of Breath; CHEST, TWO VIEWS:; ; HISTORY: Shortness of breath.; ; COMPARISON: 07/23/2016; ; Minimal peribronchial cuffing is present. Patchy density is present in the right; lower lobe consistent with an infiltrate. The left lung is clear. The heart is; normal in size. The pulmonary vasculature is normal in appearance. The bony; structure is intact.; ; IMPRESSION:; ; Right lower lobe infiltrate.; ; ; ; ; Signed by; Shyam Mcghee MD 07/31/2016 10:34 A; Radiology Order: EKG-ADULT Test: EKG-ADULT REASON FOR EXAMINATION: Shortness of Breath; Stationary ECG Study; [facility] - ED; ; Test Date: 2016-07-31; Pat Name: BOOKER MOORE Department:; Room: -; Gender: M Jacquard Lace Weaver: maryana; : 1940 Requested By: DANETTE ALMANZA; Order Number: [id number] Reading MD: Alejandra Valentin; Measurements; Intervals [place]; Rate: 125 P:; [place]: 0 QRS: 22; QRSD: 104 T: 149; QT: 278; QTc: 401; Interpretive Statements; ATRIAL FIBRILLATION WITH RAPID VENTRICULAR RESPONSE; MARKED ST DEPRESSION, CONSIDER SUBENDOCARDIAL INJURY; NO PRIOR FOR COMPARISON; Electronically Signed On 07-31-2016 19:27:21 EST by Alejandra Valentin; Radiology Order: ECG WITH READING ER PHYS Test: ECG WITH READING ER PHYS REASON FOR EXAMINATION: ELEVATED TROP; Stationary ECG Study; [place] [facility]; ; Test Date: 2016-07-31; Pat Name: BOOKER MOORE Department:; Room: -; Gender: M Jacquard Lace Weaver: maryana; : 1940 Requested By: DANETTE ALMANZA; Order Number: [id number] Reading MD: Alejandra Valentin; Measurements; Intervals [place]; Rate: 91 P:; [place]: 0 QRS: 17; QRSD: 102 T: 163; QT: 378; QTc: 465; Interpretive Statements; ATRIAL FIBRILLATION; MARKED ST DEPRESSION, CONSIDER SUBENDOCARDIAL INJURY; DECREASED RATE 07/31/16 8:49; Electronically Signed On 07-31-2016 19:31:21 EST by Alejandra Valentin; Radiology Order: Ultrasound Bilateral LE R/O DVT Test: Ultrasound Bilateral LE R/O DVT REASON FOR EXAMINATION: Shortness of Breath; Bilateral lower extremity Duplex Doppler venous ultrasound:; ; Real time compression and duplex Doppler interrogation of the bilateral lower; extremity deep venous system is performed. Bilaterally, the common femoral,; superficial femoral and popliteal veins are fully compressible with transducer; pressure and demonstrate normal spontaneous and phasic flow, without evidence of; deep venous thrombosis.; ; Impression:; ; No evidence of deep venous thrombosis of the bilateral lower extremity femoral; popliteal venous system. There is a right popliteal cyst measuring 3.2 x 0.8 x; 1.4 cm.; ; ; Signed by; Jonathan Dubose MD 07/31/2016 12:26 P; Radiology Order: ECHOCARDIOGRAM,DOPPLER/COLOR FLOW Test: ECHOCARDIOGRAM,DOPPLER/COLOR FLOW DATE OF PROCEDURE: 07/31/2016; ; REFERRING PHYSICIAN: Dr. Urbano, ER; ; PATIENT LOCATION: Emergency room, room #5.; ; REASON FOR ECHOCARDIOGRAM: Abnormal EKG.; ; 2D MEASUREMENTS:; IVS: 1.3 cm; LV: 4.9 cm; LVPW: 0.82 cm; LA: 3.7 cm; Aorta: 3.3 cm; IVC: 2.3 cm; ; DOPPLER MEASUREMENTS:; Peak velocity across the aortic valve: 0.92 m/s; Peak velocity across the LVOT: 0.43 m/s; Mitral E: 0.9; Maximum tricuspid valve velocity: 2.4 m/s; ; 2D COMMENTS:; 1. Normal left ventricular size with probably mildly increased left ventricular; wall thickness. Left ventricular systolic function is moderately depressed with; an estimated global left ventricular systolic ejection fraction of 40%. The apex; including anteroapical septum appeared to be markedly hypokinetic.; 2. Normal left atrium. Subjectively, the left atrium appeared to be mildly; enlarged. Normal right atrium and right ventricle.; 3. The atrial septum appeared to be normal without evidence of defect or shunt.; 4. Normal aortic root.; 5. Trace pericardial effusion noted, no evidence of cardiac tamponade. This also; may be related to a fat pad. It was seen mainly anteriorly.; 6. Mildly calcified aortic valve with normal leaflet excursion. Mildly calcified; mitral annulus with normal anterior mitral valve leaflet motion. Normal tricuspid; valve. The pulmonic valve and proximal pulmonary artery branches were not well; visualized.; 7. The inferior vena cava was mildly enlarged, central venous pressure might be; elevated.; ; DOPPLER:; It detects trace aortic regurgitation, mild to moderate mitral regurgitation and; trace to mild tricuspid regurgitation. The calculated pulmonary artery systolic; pressure varies between 30 to 40 mmHg. Assessment of the left ventricular; diastolic function was limited.; ; IMPRESSION:; 1. Mild to moderate global left ventricular systolic dysfunction with regional; wall motion abnormalities consistent with underlying coronary artery disease. Not; mentioned above, the inferior wall appeared also to be hypokinetic. Assessment of; the left ventricular diastolic function was limited.; 2. Aortic valve sclerosis with trace aortic regurgitation, but no aortic; stenosis.; 3. Mitral annulus calcification with mildly enlarged left atrium and mild to; moderate mitral regurgitation.; 4. Trace to mild tricuspid regurgitation with mild pulmonary hypertension.; 5. Possible trace pericardial effusion.; Outcome: 12:47 Ultrasound Study completed. kr3 16:33 Decision to Hospitalize by Provider. jo4 21:13 Discharge Assessment: Patient awake, alert and oriented x 3. No cognitive and/or jp6 functional deficits noted. Patient verbalized understanding of disposition instructions. patient administered narcotics - no. The following High Risk Discharge criteria are identified: Admitted to PCU accompanied by nurse, accompanied by tech, family with patient, via stretcher, with oxygen, on monitor, with chart. Condition: unchanged. Property :Personal belongings accompany Pt. 21:21 Patient left the ED. jp6 Signatures: Dispatcher [employer] EDMS Rosemarie Serrano, RN RN kmg1 Merary Sexton, Reg Reg lg Sumsapna,Jennifer Ochoa sm5 Nely Gutierrez RN RN kr3 Michelle Moreno RN RN pml Qureshi, Darling nq Steffen Oneill, STREETCAR CONDUCTOR STREETCAR CONDUCTOR jrd Danette Perdomo, DO jo4 Margi Aleman, Reg Reg hs2 Taty Andrews RN RN jp6 Catrachita Delgadillo2 Renzo Chandler, STREETCAR CONDUCTOR STREETCAR CONDUCTOR jmv Corrections: (The following items were deleted from the chart) 09:41 09:40 Reassessment: Patient appears in no apparent distress at this time. [place] [id number] 09:41 09:40 General: Behavior is cooperative, [facility] 11:45 11:19 Pulse 90bpm; Monitor; Pulse Ox 92% 2.5 lpm Nasal Cannula; [facility] 16:05 16:05 Reassessment: Patient appears in no apparent distress at this time. 3 kr3 16:05 16:05 General: Behavior is cooperative, pleasant, [facility] MTDD
--- NOTE | 2016-07-31 21:22 | EDDOCDS ---
Physician Documentation [facility] Name: Booker Moore Age: 76 yrs Sex: Male : 1940 Arrival Date: 07/31/2016 Time: 07:29 Bed 5 Private MD: Disposition: 07/31 09:40 I have independently interviewed and examined the patient, and I agree with the sd1 investigation, diagnosis and treatment plan as documented by the Resident. Disposition: 07/31/16 16:33 Hospitalization ordered by Darling Sierra for Inpatient Admission. Preliminary diagnosis is Pneumonia, unspecified organism. - Bed requested for PCU. - Status is Inpatient Admission. jp6 - Condition is Stable. - Problem is new. - Symptoms are unchanged. Historical: - Allergies: no known allergies; - Home Meds: 1. amlodipine 10 mg Oral tab 1 tab once daily 2. irbesartan 300 mg oral tab 1 tab once daily 3. cefdinir 300 mg Oral cap 1 cap every 12 hours 4. prednisone 10 mg Oral tab once daily 5. Xarelto 15 mg oral tab daily 6. aspirin 81 mg Oral chew 1 tab once daily 7. hydrochlorothiazide 25 mg Oral tab 1 tab once daily 8. nadolol 40 mg oral tab 1 tab once daily 9. Januvia 100 mg oral tab 1 tab once daily - PMHx: Hypertension; Diabetes - NIDDM: controlled; Atrial Fib; - PSHx: Lithotripsy; Coronary Stents; Prostatectomy; Hernia repair; - Social history: Smoking status: Patient states former smoker of tobacco. No barriers to communication noted, The patient speaks fluent Kazakh, Speaks appropriately for age. - Family history: Not pertinent. - : The pt / caregiver states he / she is on anticoagulants: Xarelto Home medication list is obtained from the patient. - Exposure Risk Screening:: None identified. Vital Signs: 07:44 BP 163 / 102; Pulse 100; Resp 22; Pulse Ox 89% on R/A; Weight 90.72 kg / 200 lbs; pml Height 5 ft. 9 in. (175.26 cm); Pain 0/10; 07:56 Temp 99.8(TE); Pulse Ox 94% on 3 lpm NC; kr3 08:35 BP 155 / 96; Pulse 108; Resp 18; Pulse Ox 97% on 2 lpm NC; kr3 09:19 BP 147 / 100 (auto/); kr3 09:19 Pulse 116 MON; Pulse Ox 93% on 2 lpm NC; kr3 09:49 BP 165 / 93 (auto/); kr3 09:49 Pulse 96 MON; Pulse Ox 90% on 2 lpm NC; kr3 10:38 Pulse 94; Resp 18; Pulse Ox 91% on 2.5 lpm NC; kr3 11:11 BP 116 / 72 (auto/); kr3 11:11 Pulse 88 MON; Resp 18; Pulse Ox 93% on 2.5 lpm NC; kr3 11:19 BP 137 / 71 (auto/); kr3 11:19 Pulse 90 MON; Resp 18; Temp 97.6(O); Pulse Ox 92% on 2.5 lpm NC; kr3 11:49 BP 141 / 80 (auto/); kr3 11:49 Pulse 94 MON; Pulse Ox 90% on 2.5 lpm NC; kr3 12:19 BP 122 / 74 (auto/); kr3 12:19 Pulse 86 MON; Pulse Ox 2.5 lpm NC; kr3 12:49 BP 152 / 79 (auto/); kr3 12:49 Pulse 94 MON; Pulse Ox 93% on 2.5 lpm NC; kr3 15:10 Pulse 86 MON; kr3 16:02 BP 126 / 87 (auto/); kr3 16:32 BP 159 / 94 (auto/); kr3 16:32 Pulse 108 MON; Resp 16; Temp 96.7(O); kr3 17:02 BP 141 / 86 (auto/); kr3 17:02 Pulse 82 MON; kr3 17:32 BP 155 / 72 (auto/); kr3 17:32 Pulse 82 MON; kr3 19:32 BP 132 / 80 (auto/); jp6 19:32 Pulse 126 MON; Pulse Ox 96% ; jp6 19:52 Pulse 112 MON; Pulse Ox 95% ; jp6 20:02 BP 120 / 76 (auto/); jp6 20:02 Pulse 84 MON; jp6 21:09 BP 127 / 74; Pulse 92; Resp 20; Temp 97.1(O); Pulse Ox 93% on 4 lpm NC; Pain 0/10; jmv 07:44 Body Mass Index 29.53 (90.72 kg, 175.26 cm) pml MDM: 08:00 Financial registration complete. lg 08:16 [facility] [place] was scanned into [employer] and attached to record. lg 08:24 -Blood Culture (Adults Only), peripheral from different site, or from device/port/PICC jo4 etc. if present ordered. 08:24 Dental Service Chief ordered. jo4 08:24 Oxygen at 2L/min via NC ordered. jo4 08:25 Pulse ox continuous ordered. jo4 08:25 CBC with Diff Ordered. EDMS 08:25 BMP Ordered. EDMS 08:25 -Blood Culture Ordered. EDMS 08:26 Chest, 2 View (pa\E\lat) Ordered. EDMS 08:34 -Blood Culture (Adults Only), peripheral from different site, or from device/port/PICC lbd etc. if present complete. 08:38 BLOOD CULTURES Ordered. EDMS 08:42 Albuterol-Ipratropium 3 ml Inhalation once ordered. jo4 08:42 Call Respiratory ordered. jo4 08:42 -Arterial Blood Gas Ordered. EDMS 08:44 ECG WITH READING ER PHYS+CARDIAG ordered. EDMS 08:45 CARDIAC MARKER PANEL Ordered. EDMS 08:45 Call Respiratory complete. kr3 09:02 Misc [employer] Player Order ordered. jo4 09:09 CBC with Diff Reviewed. sd1 09:09 Lactic Acid (Dubose tube on ice) Ordered. EDMS 09:12 BED REQUEST+ADM ordered. EDMS 09:12 -Influenza A&B Rapid Antigen - Nose Ordered. EDMS 09:12 Misc [employer] Player Order complete. lbd 09:20 -Arterial Blood Gas Reviewed. jo4 09:40 CONSISTENT CARBOHYDRATE+DIET ordered. EDMS 10:01 Moxifloxacin 400 mg IV at 400 mg/hr once over 60 mins ordered. jo4 10:08 -Influenza A&B Rapid Antigen - Nose Reviewed. sd1 10:17 Lactic Acid (Dubose tube on ice) Reviewed. sd1 10:22 Redraw CIP &Troponin (put time in details section) ordered. jo4 10:24 Repeat EKG (put time details section) ordered. jo4 10:26 Aspirin Chewable Tablet 324 mg PO once ordered. jo4 10:26 Redraw CIP &Troponin (put time in details section) complete. jrd 10:28 CARDIAC INJURY PROFILE Ordered. EDMS 10:28 TROPONIN Ordered. EDMS 10:29 ECG WITH READING ER PHYS ordered. EDMS 10:33 Repeat EKG (put time details section) complete. jrd 11:13 CARDIAC MARKER PANEL Reviewed. jo4 11:31 BMP Reviewed. jo4 11:34 Ultrasound Bilateral LE R/O DVT Ordered. EDMS 12:24 Chest, 2 View (pa\E\lat) Reviewed. sd1 13:02 CARDIAC INJURY PROFILE Reviewed. jo4 13:02 TROPONIN Reviewed. jo4 13:02 Ultrasound Bilateral LE R/O DVT Reviewed. jo4 14:13 Redraw CIP &Troponin (put time in details section) ordered. jo4 14:35 Redraw CIP &Troponin (put time in details section) complete. ml6 14:36 Cardiac Marker Panel Ordered. EDMS 15:14 Cardiac Marker Panel Reviewed. jo4 15:57 ECHOCARDIOGRAM,DOPPLER/COLOR FLOW+CARDIAG ordered. EDMS 16:17 CONSISTENT CARBOHYDRATE+DIET ordered. EDMS 16:34 Admission / Observation Status ordered. EDMS 16:35 2 GRAM SODIUM DIET ordered. EDMS 16:44 TROPONIN Ordered. EDMS 17:08 COMPLETE BLOOD COUNT Ordered. EDMS 17:15 Other consultation: Based on patient's clinical picture and confirmed RLL pneumonia jo4 with elevated WBC, a consult was put in to hospitalist for patient to be admitted. Spoke with Dr. Marshall who agreed to admit patient. Initial troponin returned and was elevated. Dr. Marshall called back and recommended that patient be transferred to a cardiac facility. I informed Dr. Marshall that patient's clinical picture appears more infectious and that pneumonia needs to be treated. Was advised to contact cardiology. Spoke to Dr. Urban who suggested that elevated troponin was possibly not an acute evolution and that there was more of an underlying respiratory component. He recommended CT angiography to rule out a PE. Patient's creatinine inhibits ability to administer contrast. Put in another call to hospitalist, this time to Dr. Sierra. By this time a second troponin had returned and was still elevated, but not much different from the initial level. Dr. Sierra suggested that underlying symptomatology was cardiac in nature and that he would need to investigate patient further before making any further decisions about patient's disposition. A subsequent troponin was drawn and was further elevated from the first two levels. A call was put in to interventional cardiology in [place], Dr. Bustamante. He recommended that patient's pneumonia be treated first with return to normal lab values before considering cardiac catheterization. Dr. Urban discussed case with Dr. Carmona, who will evaluate patient later this evening.. 17:25 ERYTHROCYTE SEDIMENTATION RATE Ordered. EDMS 17:25 C REACTIVE PROTEIN QUANTITATIV Ordered. EDMS 17:25 PROTHROMBIN TIME PROFILE\E\INR Ordered. EDMS 17:27 BRAIN NATIURETIC PEPTIDE Ordered. EDMS 18:25 COMPLETE BLOOD COUNT Ordered. EDMS 18:25 TROPONIN Ordered. EDMS 18:26 BASIC METABOLIC PROFILE Ordered. EDMS 18:36 cefTRIAXone 1 grams IVPB once over 30 mins; dilute in 50mL of NS or D5W ordered. kr3 19:15 azithromycin 500 mg IVPB once over 1 hrs; dilute in 250mL of D5W or NS ordered. jp6 19:28 URINALYSIS Ordered. EDMS 19:29 RENAL US Ordered. EDMS 19:29 CT Chest with contrast Ordered. EDMS 19:31 CT Chest with contrast Ordered. EDMS 19:32 TROPONIN Ordered. EDMS 19:32 TROPONIN Ordered. EDMS 19:32 TROPONIN Ordered. EDMS 19:32 TROPONIN Ordered. EDMS 19:32 BASIC METABOLIC PROFILE Ordered. EDMS 19:32 BRAIN NATIURETIC PEPTIDE Ordered. EDMS 19:33 COMPLETE BLOOD COUNT Ordered. EDMS 20:00 CT Chest without contrast Ordered. EDMS 21:09 CARDIAC RISK PROFILE Ordered. EDMS Administered Medications: 09:12 Drug: Albuterol-Ipratropium 3 ml [ipratropium-albuterol 0.5 mg-3 mg(2.5 mg base)/3 mL js nebulization soln (3 mL)] Route: Inhalation; 10:09 Drug: Moxifloxacin 400 mg [moxifloxacin 400 mg/250 mL-sodium chloride(iso) intravenous kr3 piggyback] Route: IV; Rate: 400 mg/hr; Infused Over: 60 mins; Site: right hand; 11:13 Follow up: IV Status: Completed infusion; IV Intake: 250ml kr3 10:35 Drug: Aspirin 324 mg [aspirin 81 mg chewable tablet (4 tabs)] Route: PO; kr3 18:36 Drug: cefTRIAXone 1 grams [ceftriaxone 1 gram solution for injection] Route: IVPB; kr3 Infused Over: 30 mins; Site: right hand; 19:15 Drug: azithromycin 500 mg [azithromycin 500 mg intravenous solution] Route: IVPB; jp6 Infused Over: 1 hrs; Site: right hand; Signatures: Dispatcher [employer] EDMS Alejandra Valentin MD MD sd1 Sheridan Bucio, Yarn Sorter Unit lbd Merary Sexton, Reg Reg lg Nely Gutierrez,RN RN kr3 Eric Blake, RN RN ml6 Michelle Moreno,RN RN pml Steffen Oneill, BOILERMAKER'S ASSISTANT BOILERMAKER'S ASSISTANT jrd Danette Perdomo, DO jo4 Taty Andrews,RN RN jp6 Sudheer Sesay The chart was reviewed and I authenticate all verbal orders and agree with the evaluation and treatment provided.Corrections: (The following items were deleted from the chart) 08:45 08:42 CARDIAC MARKER PANEL+LAB ordered. EDMS EDMS 10:23 10:19 TROPONIN+LAB ordered. EDMS EDMS 15:16 15:08 CONSISTENT CARBOHYDRATE+DIET ordered. EDMS EDMS 16:05 15:57 ECHOCARDIOGRAM,DOPPLER/COLOR FLOW+CARDIAG ordered. EDMS EDMS 17:01 16:35 ECHOCARD,DOPPLER/COLOR FLOW ordered. EDMS EDMS 17:30 16:44 BRAIN NATIURETIC PEPTIDE ordered. EDMS EDMS 21:09 19:33 CARDIAC RISK PROFILE ordered. EDMS EDMS Attachments: 08:16 [facility] [place] Agreement lg MTDD
[2016-07-31 21:30] VITALS: BP 158/90
[2016-07-31] MEDS: hydroCHLOROthiazide 25 MG TAB PO SCH (22:54)
[2016-07-31] MEDS: ATORVASTATIN 20 MG TAB PO SCH (22:55)
[2016-07-31] MEDS: NADOLOL 20MG TABLET PO SCH (22:56)
[2016-07-31] MEDS: amLODIPine 10 MG TAB PO SCH (22:56)
[2016-08-01] VITALS (7 sets, daily range): BP systolic 114–143; BP diastolic 74–90
[2016-08-01 02:27] LABS: MEAN CORPUSCULAR HEMOGLOBIN 31.6 pg (27.0-33.0); MEAN CORPUSCULAR HGB CONC 32.7 g/dl (32.0-36.5); MEAN CORPUSCULAR VOLUME 96.7 fl (80.0-96.0); RED CELL DISTRIBUTION WIDTH 13.3 % (11.5-14.5); WHITE BLOOD COUNT 19.6 K/mm3 (4.0-10.0)
[2016-08-01 02:54] LABS: CALCIUM LEVEL 9.4 MG/DL (8.8-10.2); CREATININE FOR GFR 1.95 MG/DL (0.70-1.30); GLOMERULAR FILTRATION RATE 35.7 (>42); POTASSIUM SERUM 4.7 MEQ/L (3.5-5.1)
[2016-08-01] MEDS: IPRATROPIUM 0.5MG/ALBUTEROL 2.5MG INH SOL UD 3ML (DUONEB)(J7620) NEB SCH ×4 (04:25→19:19)
--- NOTE | 2016-08-01 09:23 | IPNPDOC ---
Assessment/Plan Date Seen The patient was seen on 08/01/16. Problems Problems: (1) CAP (community acquired pneumonia) Status: Acute Problem Text: will continue ceftriaxone and azithromycin. cultures negative till date. (2) NSTEMI (non-ST elevated myocardial infarction) Status: Acute Problem Text: on betablocker, high dose statin and oral anticoagulant cardiology has been consulted has underlying cad so the stress of pneumonia may have caused him to have NSTEMI. 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 will continue with diuretics. On hydrochrolothiazide (4) CAD (coronary artery disease) Status: Chronic Problem Text: history of stent about 10 years ago (5) Diabetes Status: Chronic (6) Hypertension Status: Chronic Problem Text: on amlodipine, nadolol , HCTZ (7) TRINIDAD (acute kidney injury) Status: Acute Problem Text: do not have any recent cr level since 2006 so unknown whether TRINIDAD or CKD or TRINIDAD on CKD. will consider as TRINIDAD for now till we have more records from PCP. (8) Atrial fibrillation Status: Chronic Problem Text: rate controlled, on xarelto (9) Renal stones Status: Chronic Problem Text: history of lithotripsy in the past. Plan / VTE VTE Prophylaxis Ordered?: Yes Subjective Review of Systems CC/HPI The patient is a 76-year-old male admitted with a reason for visit of Shortness Of Breath. Events since last encounter no new complaints today , continues to have cough and phlegm production. no fever or chills, no chest pain or abdominal pain , no nausea or vomiting or diarrhea. Objective Physical Examination General Exam: Positive: Alert, No Acute Distress Eye Exam: Positive: Conjunctiva & lids normal, EOMI, PERRLA, Negative: Sclera icteric ENT Exam: Positive: Atraumatic, Mucous membr. moist/pink, Pharynx Normal Neck Exam: Positive: Supple, Negative: JVD, thyromegaly Chest Exam: Positive: Clear to auscultation, Normal air movement Heart Exam: Positive: Normal S1, Normal S2, Rate Normal, Regular Rhythm, Negative: Murmurs, Rubs Telemetry: Positive: No significant arrhythmia Abdomen Exam: Positive: Normal bowel sounds, Soft, Negative: Hepatospenomegaly, Tenderness Extremity Exam: Positive: Normal pulses, Negative: Clubbing, Cyanosis, Edema Vital Signs/I&O Vital Signs Date Time Temp Pulse Resp B/P Pulse Ox O2 Delivery O2 Flow Rate FiO2 08/01/16 07:15 96.5 87 20 139/88 95 Nasal Cannula 3.0 I&O- Last 24 Hours up to 6 AM 08/01/16 06:00 Intake Total 220 ml Output Total 475 ml Balance -255 ml Laboratory Data Labs 24H Laboratory Tests 2 07/31/16 09:38: Anion Gap 9, Blood Urea Nitrogen 44H, Creatinine 1.79H, Sodium Level 140, Potassium Level 4.4, Chloride Level 101, Carbon Dioxide Level 30, Calcium Level 10.1, Total Creatine Kinase 129, Creatine Kinase MB 11.5H, Creatine Kinase MB Relative Index 8.91H, Glomerular Filtration Rate 39.4L, Lactic Acid Level 1.8, Troponin I 8.74*H 07/31/16 11:38: Total Creatine Kinase 115, Creatine Kinase MB 10.3H, Creatine Kinase MB Relative Index 8.95H, Troponin I 8.49*H 07/31/16 14:34: Total Creatine Kinase 122, Creatine Kinase MB 12.5H, Creatine Kinase MB Relative Index 10.24H, Troponin I 11.00#*H 07/31/16 18:49: Anion Gap 5L, Blood Urea Nitrogen 51H, Creatinine 1.90H, Sodium Level 139, Potassium Level 4.4, Chloride Level 99, Carbon Dioxide Level 35H, Calcium Level 9.5, Glomerular Filtration Rate 36.8L, Troponin I 12.20*H, B-Type Natriuretic Peptide 2000H, C-Reactive Protein, Quantitative 9.44H, Erythrocyte Sedimentation Rate 19, Prothromb Time International Ratio 1.12, Prothrombin Time 14.5 07/31/16 20:36: Troponin I 11.60*H 07/31/16 21:43: Bedside Glucose (Misc Panel) 209H 08/01/16 02:17: Troponin I 13.60*H, Anion Gap 6L, B-Type Natriuretic Peptide 1480H, Calcium Level 9.4, Triglycerides Level 142, Cholesterol Level 176, HDL Cholesterol 45, LDL Cholesterol 102.6H, Cholesterol/HDL Ratio 3.911, Glomerular Filtration Rate 35.7L, Non-HDL Cholesterol (LDL + VLDL) 131 CBC/BMP Laboratory Tests 07/31/16 09:38 Calcium Level 10.1, Total Creatine Kinase 129 07/31/16 18:49 Calcium Level 9.5, Red Blood Count 4.70, Mean Corpuscular Volume 95.6, Mean Corpuscular Hemoglobin 31.3, Mean Corpuscular Hemoglobin Concent 32.8, Red Cell Distribution Width 14.1 07/31/16 20:36 Red Blood Count 4.53, Mean Corpuscular Volume 95.9, Mean Corpuscular Hemoglobin 31.0, Mean Corpuscular Hemoglobin Concent 32.4, Red Cell Distribution Width 14.2 08/01/16 02:17 Red Blood Count 4.28 L, Mean Corpuscular Volume 96.7 H, Mean Corpuscular Hemoglobin 31.6, Mean Corpuscular Hemoglobin Concent 32.7, Red Cell Distribution Width 13.3 FSBS Laboratory Tests Test 07/31/16 21:43 Range/Units Bedside Glucose (Misc Panel) 209 83-110 MG/DL Microbiology Microbiology 07/31/16 Blood Culture - Preliminary, Resulted No growth after 24 hours . All specim... 07/31/16 Blood Culture - Preliminary, Resulted No growth after 24 hours . All specim... 07/31/16 Influenza Virus Type A Antigen - Final, Complete 07/31/16 Influenza Virus Type B Antigen - Final, Complete NURIA GUERRERO MD Aug 01, 2016 09:23
[2016-08-01] MEDS: RIVAROXABAN 15 MG TAB (XARELTO) PO SCH (09:34)
[2016-08-01] MEDS: ASPIRIN 81 MG ENTERIC TAB PO SCH (09:34)
[2016-08-01] MEDS: HumaLOG INSULIN (NovoLOG) PER UNIT SC SCH ×4 (09:34→22:01)
[2016-08-01] MEDS: amLODIPine 10 MG TAB PO SCH (09:35)
[2016-08-01] MEDS: NADOLOL 20MG TABLET PO SCH (09:35)
[2016-08-01] MEDS: hydroCHLOROthiazide 25 MG TAB PO SCH (09:35)
[2016-08-01] MEDS: ISOSORBIDE MON. (IMDUR) 30 MG XR TAB PO SCH (12:53)
[2016-08-01] MEDS: cefTRIAXone SOD 1 GM in D5W MINI-BAG PLUS 50 ML IV SCH (17:28)
[2016-08-01] MEDS: AZITHROMYCIN INJ 500 MG, VIAL MATE ADAPTER 1 EACH in D5W 250 ML IV SCH (18:21)
[2016-08-01] MEDS: ATORVASTATIN 20 MG TAB PO SCH (22:01)
[2016-08-02] MEDS: IPRATROPIUM 0.5MG/ALBUTEROL 2.5MG INH SOL UD 3ML (DUONEB)(J7620) NEB SCH ×4 (01:33→19:33)
[2016-08-02 02:41] LABS: MEAN CORPUSCULAR HEMOGLOBIN 31.1 pg (27.0-33.0); MEAN CORPUSCULAR HGB CONC 32.9 g/dl (32.0-36.5); MEAN CORPUSCULAR VOLUME 94.3 fl (80.0-96.0); RED CELL DISTRIBUTION WIDTH 13.3 % (11.5-14.5)
[2016-08-02 03:04] LABS: CALCIUM LEVEL 8.5 MG/DL (8.8-10.2); CREATININE FOR GFR 1.94 MG/DL (0.70-1.30); GLOMERULAR FILTRATION RATE 35.9 (>42); POTASSIUM SERUM 3.7 MEQ/L (3.5-5.1)
[2016-08-02 04:41] VITALS: BP 125/85
[2016-08-02 07:20] VITALS: BP 133/82
[2016-08-02] MEDS: HumaLOG INSULIN (NovoLOG) PER UNIT SC SCH ×4 (07:30→21:00)
[2016-08-02] MEDS: ISOSORBIDE MON. (IMDUR) 30 MG XR TAB PO SCH (09:36)
[2016-08-02] MEDS: ASPIRIN 81 MG ENTERIC TAB PO SCH (09:36)
[2016-08-02] MEDS: RIVAROXABAN 15 MG TAB (XARELTO) PO SCH (09:36)
[2016-08-02] MEDS: amLODIPine 10 MG TAB PO SCH (09:36)
[2016-08-02] MEDS: NADOLOL 20MG TABLET PO SCH (09:36)
--- NOTE | 2016-08-02 11:02 | IPNPDOC ---
Assessment/Plan Date Seen The patient was seen on 08/02/16. Problems Problems: (1) CAP (community acquired pneumonia) Status: Acute Problem Text: will continue ceftriaxone and azithromycin. cultures negative till date. (2) NSTEMI (non-ST elevated myocardial infarction) Status: Acute Problem Text: on betablocker, high dose statin and oral anticoagulant cardiology has been consulted has underlying cad so the stress of pneumonia may have caused him to have NSTEMI. 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 will continue with diuretics. On hydrochrolothiazide (4) CAD (coronary artery disease) Status: Chronic Problem Text: history of stent about 10 years ago (5) Diabetes Status: Chronic (6) Hypertension Status: Chronic Problem Text: on amlodipine, nadolol , HCTZ (7) TRINIDAD (acute kidney injury) Status: Acute Problem Text: do not have any recent cr level since 2006 so unknown whether TRINIDAD or CKD or TRINIDAD on CKD. will consider as TRINIDAD for now till we have more records from PCP. (8) Atrial fibrillation Status: Chronic Problem Text: rate controlled, on xarelto (9) Renal stones Status: Chronic Problem Text: history of lithotripsy in the past. Plan / VTE VTE Prophylaxis Ordered?: Yes Subjective Review of Systems CC/HPI The patient is a 76-year-old male admitted with a reason for visit of Shortness Of Breath. Events since last encounter no complaints feeling much better. Objective Physical Examination General Exam: Positive: Alert, No Acute Distress Eye Exam: Positive: Conjunctiva & lids normal, EOMI, PERRLA, Negative: Sclera icteric ENT Exam: Positive: Atraumatic, Mucous membr. moist/pink, Pharynx Normal Neck Exam: Positive: Supple, Negative: JVD, thyromegaly Chest Exam: Positive: Clear to auscultation, Normal air movement Heart Exam: Positive: Normal S1, Normal S2, Rate Normal, Regular Rhythm, Negative: Murmurs, Rubs Telemetry: Positive: No significant arrhythmia Abdomen Exam: Positive: Normal bowel sounds, Soft, Negative: Hepatospenomegaly, Tenderness Extremity Exam: Positive: Normal pulses, Negative: Clubbing, Cyanosis, Edema Vital Signs/I&O Vital Signs Date Time Temp Pulse Resp B/P Pulse Ox O2 Delivery O2 Flow Rate FiO2 08/02/16 09:36 87 133/82 08/02/16 08:00 Nasal Cannula 2.0 08/02/16 07:20 96.9 18 95 I&O- Last 24 Hours up to 6 AM 08/02/16 06:00 Intake Total 2160 ml Output Total 1250 ml Balance 910 ml Laboratory Data Labs 24H Laboratory Tests 2 08/01/16 11:33: Bedside Glucose (Misc Panel) 163H 08/01/16 14:27: Troponin I 9.88*H 08/01/16 17:05: Bedside Glucose (Misc Panel) 95 08/01/16 20:42: Troponin I 10.70*H 08/01/16 21:05: Bedside Glucose (Misc Panel) 288H 08/02/16 02:33: Anion Gap 9, B-Type Natriuretic Peptide 538H, Blood Urea Nitrogen 56H, Creatinine 1.94H, Sodium Level 138, Potassium Level 3.7#, Chloride Level 102, Carbon Dioxide Level 27, Calcium Level 8.5L, Glomerular Filtration Rate 35.9L, Troponin I 11.40*H CBC/BMP Laboratory Tests 08/02/16 02:33 Calcium Level 8.5 L, Red Blood Count 4.10 L, Mean Corpuscular Volume 94.3, Mean Corpuscular Hemoglobin 31.1, Mean Corpuscular Hemoglobin Concent 32.9, Red Cell Distribution Width 13.3 FSBS Laboratory Tests Test 08/01/16 11:33 08/01/16 17:05 08/01/16 21:05 Range/Units Bedside Glucose (Misc Panel) 163 95 288 83-110 MG/DL Microbiology Microbiology 07/31/16 Blood Culture - Preliminary, Resulted No Growth after 48 hours. All Specime... 07/31/16 Blood Culture - Preliminary, Resulted No Growth after 48 hours. All Specime... 07/31/16 Influenza Virus Type A Antigen - Final, Complete 07/31/16 Influenza Virus Type B Antigen - Final, Complete NURIA GUERRERO MD Aug 02, 2016 11:02
[2016-08-02 12:00] VITALS: BP 121/78
[2016-08-02 16:00] VITALS: BP 116/65
[2016-08-02] MEDS: cefTRIAXone SOD 1 GM in D5W MINI-BAG PLUS 50 ML IV SCH (16:43)
[2016-08-02] MEDS: AZITHROMYCIN INJ 500 MG, VIAL MATE ADAPTER 1 EACH in D5W 250 ML IV SCH (17:19)
[2016-08-02 19:24] VITALS: BP 124/64
[2016-08-02 20:00] VITALS: PULSE 87
[2016-08-02] MEDS: ATORVASTATIN 20 MG TAB PO SCH (21:01)
[2016-08-02] MEDS ORDERED: HEPARIN SOD (PORCINE) 5000 UNITS/ML VIAL IV PRN (21:45)
--- NOTE | 2016-08-02 22:22 | EDDOCDS ---
Nurse's Notes [facility] Name: Booker Moore Age: 76 yrs Sex: Male : 1940 Arrival Date: 07/31/2016 Time: 07:29 Bed 5 Private MD: Diagnosis: Pneumonia, unspecified organism Presentation: 07/31 07:40 Presenting complaint: Patient states: diagnosed with bronchitis a month ago at [address] different abx since and symptoms persist. currently on cefdinir and prednisone. Adult Sepsis Screening: The patient does not have new or worsening altered mentation. Patient's respiratory rate is less than 22. Systolic blood pressure is greater than 100. Patient has a qSOFA score of 0- Negative Sepsis Screen. Suicide/Homicide risk assessment- the patient denies having any suicidal and/or homicidal ideations and does not present with any other emotional, behavioral or mental health complaints. Status: Patient is not a technical services analyst or dependent. Transition of care: patient was not received from another setting of care. 07:40 Acuity: MARTIN Level 2 [facility] 07:40 Method Of Arrival: Walkin/Carried/Asstd pml Triage Assessment: 07:44 General: Appears in no apparent distress. Pain: Denies pain. Respiratory: Onset: The pml symptoms/episode began/occurred gradually. Historical: - Allergies: no known allergies; - Home Meds: 1. amlodipine 10 mg Oral tab 1 tab once daily 2. irbesartan 300 mg oral tab 1 tab once daily 3. cefdinir 300 mg Oral cap 1 cap every 12 hours 4. prednisone 10 mg Oral tab once daily 5. Xarelto 15 mg oral tab daily 6. aspirin 81 mg Oral chew 1 tab once daily 7. hydrochlorothiazide 25 mg Oral tab 1 tab once daily 8. nadolol 40 mg oral tab 1 tab once daily 9. Januvia 100 mg oral tab 1 tab once daily - PMHx: Hypertension; Diabetes - NIDDM: controlled; Atrial Fib; - PSHx: Lithotripsy; Coronary Stents; Prostatectomy; Hernia repair; - Social history: Smoking status: Patient states former smoker of tobacco. No barriers to communication noted, The patient speaks fluent Yoruba, Speaks appropriately for age. - Family history: Not pertinent. - : The pt / caregiver states he / she is on anticoagulants: Xarelto Home medication list is obtained from the patient. - Exposure Risk Screening:: None identified. Screenin:57 Screening information is obtained from the patient. Fall risk: No risks identified. kr3 Assistance ADL's: requires no assistance with activities of daily living. Abuse/DV Screen: The patient / caregiver reports he/she is: not in a situation that causes fear, pain or injury. Nutritional screening: On diabetic diet. home support is adequate. 16:04 Advance Directives: Currently, there is no health care proxy. There is no living will. kr3 Assessment: 07:58 General: Appears in no apparent distress. Pain: Denies pain. EENT: Reports post nasal kr3 drainage. Cardiovascular: Chest pain is denied. Respiratory: Airway is patent Respiratory effort is even, Breath sounds are diminished bilaterally. Reports shortness of breath cough that is. Derm: Skin is normal. 08:30 Respiratory: Airway is patent Respiratory effort is even. kr3 08:30 Reassessment: Patient appears in no apparent distress at this time. General: Behavior kr3 is cooperative. 09:41 Reassessment: Patient appears in no apparent distress at this time. [facility]. Cardiovascular:. Respiratory: Airway is patent Respiratory effort is even. 10:36 Reassessment: Patient appears in no apparent distress at this time. Patient denies pain kr3 at this time. Neurological: No deficits noted. Respiratory: Respiratory effort is even, unlabored. 11:40 Reassessment: Patient appears in no apparent distress at this time. Pain: Denies pain. kr3 Respiratory: Respiratory effort is even, unlabored. 12:47 Reassessment: Patient appears in no apparent distress at this time. Neurological: No kr3 deficits noted. Respiratory: Respiratory effort is even. Derm: Skin is normal. 13:45 Reassessment: Patient appears in no apparent distress at this time. hospitalist has kr3 spoken with patient regarding admission. 14:30 Reassessment: Patient denies pain at this time. kr3 14:30 Reassessment: Patient appears in no apparent distress at this time. General: Behavior kr3 is cooperative, pleasant. 15:20 Reassessment: Patient appears in no apparent distress at this time. Neurological: No kr3 deficits noted. Respiratory: Respiratory effort is even, unlabored. 16:04 Reassessment: Patient appears in no apparent distress at this time. RESTING WITH EYES kr3 CLOSED. 16:47 Reassessment: patient having echocardiogram. kr3 17:30 Reassessment: Patient appears in no apparent distress at this time. aware plan is for kr3 admission, that room is unavailable at this time. Respirations unlabored. No complaints. 19:30 Reassessment: Patient appears in no apparent distress at this time. Patient denies pain jp6 at this time. General: Appears in no apparent distress, comfortable, Behavior is appropriate for age, cooperative. Pain: Denies pain. Neurological: No deficits noted. Level of Consciousness is awake, alert, Oriented to person, place, time. EENT: No deficits noted. Cardiovascular: No deficits noted. Capillary refill < 3 seconds Heart tones S1 S2 Rhythm is sinus rhythm No ectopy. Chest pain is denied. Respiratory: Airway is patent Respiratory effort is even, unlabored, Respiratory pattern is regular, symmetrical, Breath sounds are coarse Breath sounds with rhonchi Breath sounds are diminished bilaterally. Reports shortness of breath on exertion cough that is. GI: No deficits noted. : No deficits noted. Derm: Skin is pink, warm & dry. Derm: No deficits noted. 20:30 Reassessment: Patient appears in no apparent distress at this time. Patient denies pain jp6 at this time. General: waiting to go upstairs to PCU.. Vital Signs: 07:44 BP 163 / 102; Pulse 100; Resp 22; Pulse Ox 89% on R/A; Weight 90.72 kg; Height 5 ft. 9 pml in. (175.26 cm); Pain 0/10; 07:56 Temp 99.8(TE); Pulse Ox 94% on 3 lpm NC; kr3 08:35 BP 155 / 96; Pulse 108; Resp 18; Pulse Ox 97% on 2 lpm NC; kr3 09:19 BP 147 / 100 (auto/); kr3 09:19 Pulse 116 MON; Pulse Ox 93% on 2 lpm NC; kr3 09:49 BP 165 / 93 (auto/); kr3 09:49 Pulse 96 MON; Pulse Ox 90% on 2 lpm NC; kr3 10:38 Pulse 94; Resp 18; Pulse Ox 91% on 2.5 lpm NC; kr3 11:11 BP 116 / 72 (auto/); kr3 11:11 Pulse 88 MON; Resp 18; Pulse Ox 93% on 2.5 lpm NC; kr3 11:19 BP 137 / 71 (auto/); kr3 11:19 Pulse 90 MON; Resp 18; Temp 97.6(O); Pulse Ox 92% on 2.5 lpm NC; kr3 11:49 BP 141 / 80 (auto/); kr3 11:49 Pulse 94 MON; Pulse Ox 90% on 2.5 lpm NC; kr3 12:19 BP 122 / 74 (auto/); kr3 12:19 Pulse 86 MON; Pulse Ox 2.5 lpm NC; kr3 12:49 BP 152 / 79 (auto/); kr3 12:49 Pulse 94 MON; Pulse Ox 93% on 2.5 lpm NC; kr3 15:10 Pulse 86 MON; kr3 16:02 BP 126 / 87 (auto/); kr3 16:32 BP 159 / 94 (auto/); kr3 16:32 Pulse 108 MON; Resp 16; Temp 96.7(O); kr3 17:02 BP 141 / 86 (auto/); kr3 17:02 Pulse 82 MON; kr3 17:32 BP 155 / 72 (auto/); kr3 17:32 Pulse 82 MON; kr3 19:32 BP 132 / 80 (auto/); jp6 19:32 Pulse 126 MON; Pulse Ox 96% ; jp6 19:52 Pulse 112 MON; Pulse Ox 95% ; jp6 20:02 BP 120 / 76 (auto/); jp6 20:02 Pulse 84 MON; jp6 21:09 BP 127 / 74; Pulse 92; Resp 20; Temp 97.1(O); Pulse Ox 93% on 4 lpm NC; Pain 0/10; jmv 07:44 Body Mass Index 29.53 (90.72 kg, 175.26 cm) pml Vitals: 07:46 Log In Time: July 31, 2016 at 07:30. pml ED Course: 07:31 Patient visited by Margi Aleman Reg. hs2 07:31 Patient moved to Waiting hs2 07:41 Triage Initiated pml 07:46 Patient visited by Michelle Moreno,MUNA. pml 07:46 Nely Gutierrez,MUNA is Primary Nurse. pml 07:46 Patient moved to 5 pml 07:47 Danette Perdomo DO is PHCP. jo4 07:47 Alejandra Valentin MD is Attending Physician. jo4 07:53 Patient visited by Danette Perdomo DO. jo4 07:53 Patient visited by Danette Perdomo DO. jo4 07:57 The patient / caregiver is instructed regarding the plan of care and ED course. kr3 Accompanied by Family Member, Patient has correct armband on for positive identification. Placed in gown. Bed in low position. Call light in reach. Side rails up X 1. equipment monitor phototypesetting on. Pulse ox on. NIBP on. 07:57 O2 via nasal cannula \T\ 3L/min. kr3 08:16 [facility] Payment Agreement was scanned into [employer] and attached to record. lg 08:34 Patient visited by Nely Gutierrez RN. kr3 08:34 -Blood Culture Sent. kr3 08:34 BMP Sent. kr3 08:34 CBC with Diff Sent. kr3 08:35 Inserted saline lock: 20 gauge in right hand and blood collected. The patient tolerated kr3 the procedure well. O2 via nasal cannula \T\ 2L/min. 08:45 CARDIAC MARKER PANEL Sent. kr3 08:53 EKG done. Reviewed by Danette Perdomo DO. jrd 08:54 Patient visited by Steffen Oneill PCA. jrd 09:31 Lactic Acid (Dubose tube on ice) Sent. kr3 09:40 Patient visited by Nely Gutierrez RN. kr3 10:14 Patient visited by Nely Gutierrez RN. kr3 10:14 Diet tray given. kr3 10:45 Chest, 2 View (pa\E\lat) Returned. EDMS 11:03 Patient visited by Nely Gutierrez RN. kr3 11:36 Patient visited by Steffen Oneill PCA. jrd 11:36 EKG done. (by ED staff). Reviewed by Danette Perdomo DO. jrd 11:40 TROPONIN Sent. kr3 11:40 CARDIAC INJURY PROFILE Sent. kr3 11:50 Patient moved to Ultrasound sm5 12:20 Patient moved to 5 sm5 12:47 Patient visited by Nely Gutierrez RN. kr3 13:02 Ultrasound Bilateral LE R/O DVT Returned. EDMS 13:45 Patient visited by Nely Gutierrez,MUNA. kr3 13:49 Darling Sierra merchandising specialist. nq 14:46 Patient visited by Catrachita Delgadillo. nb2 16:04 Patient visited by Nely Gutierrez,MUNA. kr3 16:06 No procedures done that require assistance. kr3 16:31 Darling Sierra is Hospitalizing Provider. jo4 18:13 Diet tray given. kr3 19:01 Primary Nurse role handed off by Nely Gutierrez,MUNA kr3 19:14 Taty Andrews,RN is Primary Nurse. jp6 19:14 Patient visited by Taty Andrews,MUNA. jp6 19:41 Notified private physician of abnormal lab values. Report at this time is made to mikey Pabon. Trop 12.2. 19:42 EKG-ADULT Returned. EDMS 19:42 ECG WITH READING ER PHYS Returned. EDMS 20:38 ECHOCARDIOGRAM,DOPPLER/COLOR FLOW Returned. EDMS 21:12 Patient visited by Renzo Chandler PCA. jmv 08/01 08:06 ECG/EKG was scanned into [employer] and attached to record. gb 08:07 Trend VS was scanned into [employer] and attached to record. gb 08:07 ECG/EKG was scanned into [employer] and attached to record. gb 09:22 T-Sheet-- Draft Copy was scanned into [employer] and attached to record. se 10:55 Radiology Report was scanned into [employer] and attached to record. gb Administered Medications: 07/31 09:12 Drug: Albuterol-Ipratropium 3 ml [ipratropium-albuterol 0.5 mg-3 mg(2.5 mg base)/3 mL js nebulization soln (3 mL)] Route: Inhalation; 10:09 Drug: Moxifloxacin 400 mg [moxifloxacin 400 mg/250 mL-sodium chloride(iso) intravenous kr3 piggyback] Route: IV; Rate: 400 mg/hr; Infused Over: 60 mins; Site: right hand; 11:13 Follow up: IV Status: Completed infusion; IV Intake: 250ml kr3 10:35 Drug: Aspirin 324 mg [aspirin 81 mg chewable tablet (4 tabs)] Route: PO; kr3 18:36 Drug: cefTRIAXone 1 grams [ceftriaxone 1 gram solution for injection] Route: IVPB; kr3 Infused Over: 30 mins; Site: right hand; 19:15 Drug: azithromycin 500 mg [azithromycin 500 mg intravenous solution] Route: IVPB; jp6 Infused Over: 1 hrs; Site: right hand; Attachments: 08:07 Trend VS gb Intake: 07/31 11:13 IV: 250.00ml; Total: 250.00ml. kr3 RT: 09:12 ABG's drawn from left brachial artery pressure held for 5 minuntes no bleeding noted js pressure bandage applied specimen sent pt. tolerated well. Initial Med Neb Given as ordered Patient was instructed and evaluated on procedure Patient tolerated procedure well without adverse effect. O2 via nasal cannula \T\ 2L/min. Respiratory: Breath sounds are coarse bilaterally. Order Results: Lab Order: CBC with Diff; SPEC'M 07/31/16 08:31 Test: WHITE BLOOD COUNT; Value: 25.0; Range: 4.0-10.0; Abnormal: Above high normal; Units: K/mm3; Status: F Test: RED BLOOD COUNT; Value: 4.92; Range: 4.30-6.10; Units: M/mm3; Status: F Test: HEMOGLOBIN; Value: 15.3; Range: 14.0-18.0; Units: g/dl; Status: F Test: HEMATOCRIT; Value: 47.2; Range: 42.0-52.0; Units: %; Status: F Test: MEAN CORPUSCULAR VOLUME; Value: 95.9; Range: 80.0-96.0; Units: fl; Status: F Test: MEAN CORPUSCULAR HEMOGLOBIN; Value: 31.2; Range: 27.0-33.0; Units: pg; Status: F Test: MEAN CORPUSCULAR HGB CONC; Value: 32.5; Range: 32.0-36.5; Units: g/dl; Status: F Test: RED CELL DISTRIBUTION WIDTH; Value: 13.2; Range: 11.5-14.5; Units: %; Status: F Test: PLATELET COUNT, AUTOMATED; Value: 224; Range: 150-450; Units: k/mm3; Status: F Test: NEUTROPHILS %; Value: 91.0; Range: 36.0-66.0; Abnormal: Above high normal; Units: %; Status: F Test: LYMPH %; Value: 4.1; Range: 24.0-44.0; Abnormal: Below low normal; Units: %; Status: F Test: MONO %; Value: 3.6; Range: 0.0-5.0; Units: %; Status: F Test: EOS %; Value: 0.6; Range: 0.0-3.0; Units: %; Status: F Test: BASO %; Value: 0.2; Range: 0.0-1.0; Units: %; Status: F Test: LARGE UNSTAINED CELL %; Value: 0.5; Range: 0.0-4.0; Units: %; Status: F Test: NEUTROPHILS #; Value: 22.8; Range: 1.8-7.7; Abnormal: Above high normal; Units: K/mm3; Status: F Test: LYMPH #; Value: 1.0; Range: 1.5-4.5; Abnormal: Below low normal; Units: K/mm3; Status: F Test: MONO #; Value: 0.9; Range: 0.0-0.8; Abnormal: Above high normal; Units: K/mm3; Status: F Test: EOS #; Value: 0.2; Range: 0.0-0.50; Units: K/mm3; Status: F Test: BASO #; Value: 0.0; Range: 0.0-0.2; Units: K/mm3; Status: F Test: LARGE UNSTAINED CELL #; Value: 0.1; Range: 0.0-0.4; Units: K/mm3; Status: F Lab Order: [facility]; SPEC'M 07/31/16 09:38 Test: GLUCOSE, FASTING; Value: 222; Range: 83-110; Abnormal: Above high normal; Units: MG/DL; Status: F Test: BLOOD UREA NITROGEN; Value: 44; Range: 7-18; Abnormal: Above high normal; Units: MG/DL; Status: F Test: CREATININE FOR GFR; Value: 1.79; Range: 0.70-1.30; Abnormal: Above high normal; Units: MG/DL; Status: F Test: GLOMERULAR FILTRATION RATE; Value: 39.4; Range: >42; Abnormal: Below low normal; Status: F Test: SODIUM LEVEL; Value: 140; Range: 136-145; Units: MEQ/L; Status: F Test: POTASSIUM SERUM; Value: 4.4; Range: 3.5-5.1; Units: MEQ/L; Status: F Test: CHLORIDE LEVEL; Value: 101; Range: 98-107; Units: MEQ/L; Status: F Test: CARBON DIOXIDE LEVEL; Value: 30; Range: 21-32; Units: MEQ/L; Status: F Test: ANION GAP; Value: 9; Range: 8-16; Units: MEQ/L; Status: F Test: CALCIUM LEVEL; Value: 10.1; Range: 8.8-10.2; Units: MG/DL; Status: F Test Note: ; Units are mL/min/1.73 m2 Chronic Kidney Disease Staging per NKF: Stage I & II GFR >=60 Normal to Mildly Decreased Stage III GFR 30-59 Moderately Decreased Stage IV GFR 15-29 Severely Decreased Stage V GFR <15 Very Little GFR Left ESRD GFR <15 on OVEN BUILDER Lab Order: -Arterial Blood Gas; [facility]' 07/31/16 09:05 Test: ABG pH (ARTERIAL); Value: 7.438; Range: 7.350-7.450; Units: UNITS; Status: F Test: ABG PARTIAL PRESSURE CO2; Value: 41.4; Range: 35.0-45.0; Units: mmHg; Status: F Test: ABG PARTIAL PRESSURE O2; Value: 69.9; Range: 75.0-100.0; Abnormal: Below low normal; Units: mmHg; Status: F Test: ABG TOTAL CO2; Value: 28.6; Range: 23.0-31.0; Units: MEQ/L; Status: F Test: ABG HCO3; Value: 27.4; Range: 22.0-26.0; Abnormal: Above high normal; Units: MEQ/L; Status: F Test: ABG BASE EXCESS; Value: 2.9; Range: -2.0-2.0; Abnormal: Above high normal; Status: F Test: ABG STANDARD HCO3; Value: 26.9; Range: 22.0-26.0; Abnormal: Above high normal; Units: MEQ/L; Status: F Test: ABG O2 SATURATION; Value: 94.3; Range: 95.0-99.0; Abnormal: Below low normal; Units: %; Status: F Test: ABG DEVICE; Value: NASAL JOEY; Status: F Lab Order: CARDIAC MARKER PANEL; SPEC'M 07/31/16 09:38 Test: CPK CREATINE PHOSPHOKINASE; Value: 129; Range: 39-308; Units: U/L; Status: F Test: CK-MB VALUE MASS; Value: 11.5; Range: 0.0-3.6; Abnormal: Above high normal; Units: NG/ML; Status: F Test: MB/CK RELATIVE INDEX; Value: 8.91; Range: < OR =4; Abnormal: Above high normal; Status: F Test: TROPONIN I; Value: 8.74; Range: < 0.10; Abnormal: Above upper panic limits; Units: NG/ML; Status: F Test Note: ; DIAGNOSIS CRITERIA MMB ng/ml Relative Index (RI) NON-AMI < or = 5 N/A UDBOSE ZONE > 5 < or = 4 AMI > 5 > 4 Lab Order: Lactic Acid (Dubose tube on ice); SPEC'M 07/31/16 09:38 Test: LACTIC ACID LEVEL, LACTATE; Value: 1.8; Range: 0.4-2.0; Units: MMOL/L; Status: F Lab Order: -Influenza A&B Rapid Antigen - Nose; SPEC'M 07/31/16 09:34 Test: INFLUENZA A RAPID SCR by ICA; Value: INFLUENZA A RESULTS NEGATIVE; Status: F Test: INFLUENZA A RAPID SCR by ICA; Value: Comments:; Status: F Test: INFLUENZA B RAPID SCR by ICA; Value: INFLUENZA B RESULTS NEGATIVE; Status: F Test Note: ; The Influenza test is a direct rapid immunoassay for the qualitative detection of Influenza viral antigen. Cell culture (Viral Culture) testing should be considered to confirm NEGATIVE results and to assist in detecting other viruses that can provide similar clinical symptoms. Please contact the lab within 24 hours ([phone]) if confirmatory testing is desired. Lab Order: CARDIAC INJURY PROFILE; SPEC'M 07/31/16 11:38 Test: CPK CREATINE PHOSPHOKINASE; Value: 115; Range: 39-308; Units: U/L; Status: F Test: CK-MB VALUE MASS; Value: 10.3; Range: 0.0-3.6; Abnormal: Above high normal; Units: NG/ML; Status: F Test: MB/CK RELATIVE INDEX; Value: 8.95; Range: < OR =4; Abnormal: Above high normal; Status: F Test Note: ; DIAGNOSIS CRITERIA MMB ng/ml Relative Index (RI) NON-AMI < or = 5 N/A DUBOSE ZONE > 5 < or = 4 AMI > 5 > 4 Lab Order: TROPONIN; [facility] 07/31/16 11:38 Test: TROPONIN I; Value: 8.49; Range: < 0.10; Abnormal: Above upper panic limits; Units: NG/ML; Status: F Test Note: ; Troponin I Reference Interval for [employer]: 99th Percentile= 0.00-0.045 ng/ml Risk Stratification: <= 0.10 ng/ml Decreased Risk for Adverse Clinical Events. 0.10-1.50 ng/ml Increased Risk for Adverse Clinical Events. Evaluation of additional criterion and/or repeat testing in 2-6 hours is suggested to rule out myocardial damage. >= 1.50 ng/ml Indicative of Myocardial Injury. Lab Order: Cardiac Marker Panel; [facility] 07/31/16 14:34 Test: CPK CREATINE PHOSPHOKINASE; Value: 122; Range: 39-308; Units: U/L; Status: F Test: CK-MB VALUE MASS; Value: 12.5; Range: 0.0-3.6; Abnormal: Above high normal; Units: NG/ML; Status: F Test: MB/CK RELATIVE INDEX; Value: 10.24; Range: < OR =4; Abnormal: Above high normal; Status: F Test: TROPONIN I; Value: 11.00; Range: < 0.10; Abnormal: Critical Delta High; Units: NG/ML; Status: F Test Note: ; DIAGNOSIS CRITERIA MMB ng/ml Relative Index (RI) NON-AMI < or = 5 N/A DUBOSE ZONE > 5 < or = 4 AMI > 5 > 4 Lab Order: TROPONIN; [facility] 07/31/16 20:36 Test: TROPONIN I; Value: 11.60; Range: < 0.10; Abnormal: Above upper panic limits; Units: NG/ML; Status: F Test Note: ; Troponin I Reference Interval for [employer]: 99th Percentile= 0.00-0.045 ng/ml Risk Stratification: <= 0.10 ng/ml Decreased Risk for Adverse Clinical Events. 0.10-1.50 ng/ml Increased Risk for Adverse Clinical Events. Evaluation of additional criterion and/or repeat testing in 2-6 hours is suggested to rule out myocardial damage. >= 1.50 ng/ml Indicative of Myocardial Injury. Lab Order: COMPLETE BLOOD COUNT; SPEC'07/31/16 20:36 Test: WHITE BLOOD COUNT; Value: 19.8; Range: 4.0-10.0; Abnormal: Above high normal; Units: K/mm3; Status: F Test: RED BLOOD COUNT; Value: 4.53; Range: 4.30-6.10; Units: M/mm3; Status: F Test: HEMOGLOBIN; Value: 14.1; Range: 14.0-18.0; Units: g/dl; Status: F Test: HEMATOCRIT; Value: 43.4; Range: 42.0-52.0; Units: %; Status: F Test: MEAN CORPUSCULAR VOLUME; Value: 95.9; Range: 80.0-96.0; Units: fl; Status: F Test: MEAN CORPUSCULAR HEMOGLOBIN; Value: 31.0; Range: 27.0-33.0; Units: pg; Status: F Test: MEAN CORPUSCULAR HGB CONC; Value: 32.4; Range: 32.0-36.5; Units: g/dl; Status: F Test: RED CELL DISTRIBUTION WIDTH; Value: 14.2; Range: 11.5-14.5; Units: %; Status: F Test: PLATELET COUNT, AUTOMATED; Value: 216; Range: 150-450; Units: k/mm3; Status: F Lab Order: ERYTHROCYTE SEDIMENTATION RATE; SPEC'07/31/16 18:49 Test: ERYTHROCYTE SEDIMENTATION RATE; Value: 19; Range: 0-20; Units: mm/hr; Status: F Lab Order: C REACTIVE PROTEIN QUANTITATIV; SPEC07/31/16 18:49 Test: C REACTIVE PROTEIN QUANTITATIV; Value: 9.44; Range: 0.00-0.30; Abnormal: Above high normal; Units: MG/DL; Status: F Lab Order: PROTHROMBIN TIME PROFILE\E\INR; SPEC'07/31/16 18:49 Test: PROTHROMBIN TIME; Value: 14.5; Range: 12.3-14.5; Units: SECONDS; Status: F Test: INR; Value: 1.12; Status: F Test Note: ; THERAPUTIC HUMAN INR VALUES INDICATIONS NORMAL RANGES PROPHYLAXIS/TREATMENT OF: VENOUS THROMBOSIS 2.0-3.0 PULMONARY EMBOLISM 2.0-3.0 PREVENTION OF SYSTEMIC EMBOLISM FROM: TISSUE HEART VALVES 2.0-3.0 ACUTE MYOCARDIAL INFARCTION 2.0-3.0 VALVULAR HEART DISEASE 2.0-3.0 ATRIAL FIBRILLATION 2.0-3.0 MECHANICAL VALVES(HIGH RISK) 2.5-3.5 RECURRENT MYOCARDIAL INFARCTION 2.5-3.5 Lab Order: BRAIN NATIURETIC PEPTIDE; SPEC'M 07/31/16 18:49 Test: BRAIN NATRIURETIC PEPTIDE; Value: 2000; Range: <100; Abnormal: Above high normal; Units: PG/ML; Status: F Lab Order: COMPLETE BLOOD COUNT; SPEC'M 07/31/16 18:49 Test: WHITE BLOOD COUNT; Value: 18.5; Range: 4.0-10.0; Abnormal: Above high normal; Units: K/mm3; Status: F Test: RED BLOOD COUNT; Value: 4.70; Range: 4.30-6.10; Units: M/mm3; Status: F Test: HEMOGLOBIN; Value: 14.7; Range: 14.0-18.0; Units: g/dl; Status: F Test: HEMATOCRIT; Value: 44.9; Range: 42.0-52.0; Units: %; Status: F Test: MEAN CORPUSCULAR VOLUME; Value: 95.6; Range: 80.0-96.0; Units: fl; Status: F Test: MEAN CORPUSCULAR HEMOGLOBIN; Value: 31.3; Range: 27.0-33.0; Units: pg; Status: F Test: MEAN CORPUSCULAR HGB CONC; Value: 32.8; Range: 32.0-36.5; Units: g/dl; Status: F Test: RED CELL DISTRIBUTION WIDTH; Value: 14.1; Range: 11.5-14.5; Units: %; Status: F Test: PLATELET COUNT, AUTOMATED; Value: 202; Range: 150-450; Units: k/mm3; Status: F Lab Order: TROPONIN; SPEC'M 07/31/16 18:49 Test: TROPONIN I; Value: 12.20; Range: < 0.10; Abnormal: Above upper panic limits; Units: NG/ML; Status: F Test Note: ; Troponin I Reference Interval for [facility] LOCI: 99th Percentile= 0.00-0.045 ng/ml Risk Stratification: <= 0.10 ng/ml Decreased Risk for Adverse Clinical Events. 0.10-1.50 ng/ml Increased Risk for Adverse Clinical Events. Evaluation of additional criterion and/or repeat testing in 2-6 hours is suggested to rule out myocardial damage. >= 1.50 ng/ml Indicative of Myocardial Injury. Lab Order: BASIC METABOLIC PROFILE; SPEC'M 07/31/16 18:49 Test: GLUCOSE, FASTING; Value: 242; Range: 83-110; Abnormal: Above high normal; Units: MG/DL; Status: F Test: BLOOD UREA NITROGEN; Value: 51; Range: 7-18; Abnormal: Above high normal; Units: MG/DL; Status: F Test: CREATININE FOR GFR; Value: 1.90; Range: 0.70-1.30; Abnormal: Above high normal; Units: MG/DL; Status: F Test: GLOMERULAR FILTRATION RATE; Value: 36.8; Range: >42; Abnormal: Below low normal; Status: F Test: SODIUM LEVEL; Value: 139; Range: 136-145; Units: MEQ/L; Status: F Test: POTASSIUM SERUM; Value: 4.4; Range: 3.5-5.1; Units: MEQ/L; Status: F Test: CHLORIDE LEVEL; Value: 99; Range: 98-107; Units: MEQ/L; Status: F Test: CARBON DIOXIDE LEVEL; Value: 35; Range: 21-32; Abnormal: Above high normal; Units: MEQ/L; Status: F Test: ANION GAP; Value: 5; Range: 8-16; Abnormal: Below low normal; Units: MEQ/L; Status: F Test: CALCIUM LEVEL; Value: 9.5; Range: 8.8-10.2; Units: MG/DL; Status: F Test Note: ; Units are mL/min/1.73 m2 Chronic Kidney Disease Staging per NKF: Stage I & II GFR >=60 Normal to Mildly Decreased Stage III GFR 30-59 Moderately Decreased Stage IV GFR 15-29 Severely Decreased Stage V GFR <15 Very Little GFR Left ESRD GFR <15 on OVEN BUILDER Radiology Order: Chest, 2 View (pa\E\lat) Test: Chest, 2 View (pa\E\lat) REASON FOR EXAMINATION: Shortness of Breath; CHEST, TWO VIEWS:; ; HISTORY: Shortness of breath.; ; COMPARISON: 07/23/2016; ; Minimal peribronchial cuffing is present. Patchy density is present in the right; lower lobe consistent with an infiltrate. The left lung is clear. The heart is; normal in size. The pulmonary vasculature is normal in appearance. The bony; structure is intact.; ; IMPRESSION:; ; Right lower lobe infiltrate.; ; ; ; ; Signed by; Shyam Mcghee MD 07/31/2016 10:34 A; Radiology Order: EKG-ADULT Test: EKG-ADULT REASON FOR EXAMINATION: Shortness of Breath; Stationary ECG Study; [facility]; ; Test Date: 2016-07-31; Pat Name: [facility] Department:; Room: -; Gender: M Primary Care Provider: maryana; : 1940 Requested By: DANETTE ALMANZA; Order Number: [id number] Reading MD: Alejandra Valentin; Measurements; Intervals [place]; Rate: 125 P:; IA: 0 QRS: 22; QRSD: 104 T: 149; QT: 278; QTc: 401; Interpretive Statements; ATRIAL FIBRILLATION WITH RAPID VENTRICULAR RESPONSE; MARKED ST DEPRESSION, CONSIDER SUBENDOCARDIAL INJURY; NO PRIOR FOR COMPARISON; Electronically Signed On 07-31-2016 19:27:21 EST by Alejandra Valentin; Radiology Order: ECG WITH READING ER PHYS Test: ECG WITH READING ER PHYS REASON FOR EXAMINATION: ELEVATED TROP; Stationary ECG Study; [facility] ED; ; Test Date: 2016-07-31; Pat Name: [facility] Department:; Room: -; Gender: M Primary Care Provider: maryana; : 1940 Requested By: DANETTE ALMANZA; Order Number: [id number] Reading MD: Alejandra Valentin; Measurements; Intervals [place]; Rate: 91 P:; IA: 0 QRS: 17; QRSD: 102 T: 163; QT: 378; QTc: 465; Interpretive Statements; ATRIAL FIBRILLATION; MARKED ST DEPRESSION, CONSIDER SUBENDOCARDIAL INJURY; DECREASED RATE 07/31/16 8:49; Electronically Signed On 07-31-2016 19:31:21 EST by Alejandra Valentin; Radiology Order: Ultrasound Bilateral LE R/O DVT Test: Ultrasound Bilateral LE R/O DVT REASON FOR EXAMINATION: Shortness of Breath; Bilateral lower extremity Duplex Doppler venous ultrasound:; ; Real time compression and duplex Doppler interrogation of the bilateral lower; extremity deep venous system is performed. Bilaterally, the common femoral,; superficial femoral and popliteal veins are fully compressible with transducer; pressure and demonstrate normal spontaneous and phasic flow, without evidence of; deep venous thrombosis.; ; Impression:; ; No evidence of deep venous thrombosis of the bilateral lower extremity femoral; popliteal venous system. There is a right popliteal cyst measuring 3.2 x 0.8 x; 1.4 cm.; ; ; Signed by; Jonathan Dubose MD 07/31/2016 12:26 P; Radiology Order: ECHOCARDIOGRAM,DOPPLER/COLOR FLOW Test: ECHOCARDIOGRAM,DOPPLER/COLOR FLOW DATE OF PROCEDURE: 07/31/2016; ; REFERRING PHYSICIAN: Dr. Urbano, ER; ; PATIENT LOCATION: Emergency room, room #5.; ; REASON FOR ECHOCARDIOGRAM: Abnormal EKG.; ; 2D MEASUREMENTS:; IVS: 1.3 cm; LV: 4.9 cm; LVPW: 0.82 cm; LA: 3.7 cm; Aorta: 3.3 cm; IVC: 2.3 cm; ; DOPPLER MEASUREMENTS:; Peak velocity across the aortic valve: 0.92 m/s; Peak velocity across the LVOT: 0.43 m/s; Mitral E: 0.9; Maximum tricuspid valve velocity: 2.4 m/s; ; 2D COMMENTS:; 1. Normal left ventricular size with probably mildly increased left ventricular; wall thickness. Left ventricular systolic function is moderately depressed with; an estimated global left ventricular systolic ejection fraction of 40%. The apex; including anteroapical septum appeared to be markedly hypokinetic.; 2. Normal left atrium. Subjectively, the left atrium appeared to be mildly; enlarged. Normal right atrium and right ventricle.; 3. The atrial septum appeared to be normal without evidence of defect or shunt.; 4. Normal aortic root.; 5. Trace pericardial effusion noted, no evidence of cardiac tamponade. This also; may be related to a fat pad. It was seen mainly anteriorly.; 6. Mildly calcified aortic valve with normal leaflet excursion. Mildly calcified; mitral annulus with normal anterior mitral valve leaflet motion. Normal tricuspid; valve. The pulmonic valve and proximal pulmonary artery branches were not well; visualized.; 7. The inferior vena cava was mildly enlarged, central venous pressure might be; elevated.; ; DOPPLER:; It detects trace aortic regurgitation, mild to moderate mitral regurgitation and; trace to mild tricuspid regurgitation. The calculated pulmonary artery systolic; pressure varies between 30 to 40 mmHg. Assessment of the left ventricular; diastolic function was limited.; ; IMPRESSION:; 1. Mild to moderate global left ventricular systolic dysfunction with regional; wall motion abnormalities consistent with underlying coronary artery disease. Not; mentioned above, the inferior wall appeared also to be hypokinetic. Assessment of; the left ventricular diastolic function was limited.; 2. Aortic valve sclerosis with trace aortic regurgitation, but no aortic; stenosis.; 3. Mitral annulus calcification with mildly enlarged left atrium and mild to; moderate mitral regurgitation.; 4. Trace to mild tricuspid regurgitation with mild pulmonary hypertension.; 5. Possible trace pericardial effusion.; Outcome: 12:47 Ultrasound Study completed. kr3 16:33 Decision to Hospitalize by Provider. jo4 21:13 Discharge Assessment: Patient awake, alert and oriented x 3. No cognitive and/or jp6 functional deficits noted. Patient verbalized understanding of disposition instructions. patient administered narcotics - no. The following High Risk Discharge criteria are identified: Admitted to PCU accompanied by nurse, accompanied by tech, family with patient, via stretcher, with oxygen, on monitor, with chart. Condition: unchanged. Property :Personal belongings accompany Pt. 21:21 Patient left the ED. jp6 Signatures: Dispatcher [employer] EDMS Rosemarie Serrano, RN RN kmg1 Tania Das, Reg Reg gb Merary Sexton, Reg Reg lg Shama,Jennifer Ochoa 5 Nely Gutierrez RN RN kr3 [place],Michelle,RN RN pml SierraDarling solis Joseph, HEALTH PROMOTION MANAGER HEALTH PROMOTION MANAGER jrd Danette Perdomo, DO DO jo4 Margi Aleman, Reg Reg hs2 Taty Andrews,MUNA RN sylvie6 Enma, Alejandra Delgadillo, Catrachita wild2 Renzo Chandler, HEALTH PROMOTION MANAGER HEALTH PROMOTION MANAGER jmv Corrections: (The following items were deleted from the chart) 09:41 09:40 Reassessment: Patient appears in no apparent distress at this time. 3 3 09:41 09:40 General: Behavior is cooperative, 3 3 11:45 11:19 Pulse 90bpm; Monitor; Pulse Ox 92% 2.5 lpm Nasal Cannula; 3 3 16:05 16:05 Reassessment: Patient appears in no apparent distress at this time. 3 3 16:05 16:05 General: Behavior is cooperative, pleasant, kr3 kr3 Chart Complete MTDD
--- NOTE | 2016-08-02 22:22 | EDDOCDS ---
Physician Documentation [facility] Name: Booker Moore Age: 76 yrs Sex: Male : 1940 Arrival Date: 07/31/2016 Time: 07:29 Bed 5 Private MD: Disposition: 07/31 09:40 I have independently interviewed and examined the patient, and I agree with the sd1 investigation, diagnosis and treatment plan as documented by the Resident. Disposition: 07/31/16 16:33 Hospitalization ordered by Darling Sierra for Inpatient Admission. Preliminary diagnosis is Pneumonia, unspecified organism. - Bed requested for PCU. - Status is Inpatient Admission. jp6 - Condition is Stable. - Problem is new. - Symptoms are unchanged. Historical: - Allergies: no known allergies; - Home Meds: 1. amlodipine 10 mg Oral tab 1 tab once daily 2. irbesartan 300 mg oral tab 1 tab once daily 3. cefdinir 300 mg Oral cap 1 cap every 12 hours 4. prednisone 10 mg Oral tab once daily 5. Xarelto 15 mg oral tab daily 6. aspirin 81 mg Oral chew 1 tab once daily 7. hydrochlorothiazide 25 mg Oral tab 1 tab once daily 8. nadolol 40 mg oral tab 1 tab once daily 9. Januvia 100 mg oral tab 1 tab once daily - PMHx: Hypertension; Diabetes - NIDDM: controlled; Atrial Fib; - PSHx: Lithotripsy; Coronary Stents; Prostatectomy; Hernia repair; - Social history: Smoking status: Patient states former smoker of tobacco. No barriers to communication noted, The patient speaks fluent Greenlandic, Speaks appropriately for age. - Family history: Not pertinent. - : The pt / caregiver states he / she is on anticoagulants: Xarelto Home medication list is obtained from the patient. - Exposure Risk Screening:: None identified. Vital Signs: 07:44 BP 163 / 102; Pulse 100; Resp 22; Pulse Ox 89% on R/A; Weight 90.72 kg / 200 lbs; pml Height 5 ft. 9 in. (175.26 cm); Pain 0/10; 07:56 Temp 99.8(TE); Pulse Ox 94% on 3 lpm NC; kr3 08:35 BP 155 / 96; Pulse 108; Resp 18; Pulse Ox 97% on 2 lpm NC; kr3 09:19 BP 147 / 100 (auto/); kr3 09:19 Pulse 116 MON; Pulse Ox 93% on 2 lpm NC; kr3 09:49 BP 165 / 93 (auto/); kr3 09:49 Pulse 96 MON; Pulse Ox 90% on 2 lpm NC; kr3 10:38 Pulse 94; Resp 18; Pulse Ox 91% on 2.5 lpm NC; kr3 11:11 BP 116 / 72 (auto/); kr3 11:11 Pulse 88 MON; Resp 18; Pulse Ox 93% on 2.5 lpm NC; kr3 11:19 BP 137 / 71 (auto/); kr3 11:19 Pulse 90 MON; Resp 18; Temp 97.6(O); Pulse Ox 92% on 2.5 lpm NC; kr3 11:49 BP 141 / 80 (auto/); kr3 11:49 Pulse 94 MON; Pulse Ox 90% on 2.5 lpm NC; kr3 12:19 BP 122 / 74 (auto/); kr3 12:19 Pulse 86 MON; Pulse Ox 2.5 lpm NC; kr3 12:49 BP 152 / 79 (auto/); kr3 12:49 Pulse 94 MON; Pulse Ox 93% on 2.5 lpm NC; kr3 15:10 Pulse 86 MON; kr3 16:02 BP 126 / 87 (auto/); kr3 16:32 BP 159 / 94 (auto/); kr3 16:32 Pulse 108 MON; Resp 16; Temp 96.7(O); kr3 17:02 BP 141 / 86 (auto/); kr3 17:02 Pulse 82 MON; kr3 17:32 BP 155 / 72 (auto/); kr3 17:32 Pulse 82 MON; kr3 19:32 BP 132 / 80 (auto/); jp6 19:32 Pulse 126 MON; Pulse Ox 96% ; jp6 19:52 Pulse 112 MON; Pulse Ox 95% ; jp6 20:02 BP 120 / 76 (auto/); jp6 20:02 Pulse 84 MON; jp6 21:09 BP 127 / 74; Pulse 92; Resp 20; Temp 97.1(O); Pulse Ox 93% on 4 lpm NC; Pain 0/10; jmv 07:44 Body Mass Index 29.53 (90.72 kg, 175.26 cm) pml MDM: 08:00 Financial registration complete. lg 08:16 [facility] Payment Agreement was scanned into [employer] and attached to record. lg 08:24 -Blood Culture (Adults Only), peripheral from different site, or from device/port/PICC jo4 etc. if present ordered. 08:24 Mold Closer ordered. jo4 08:24 Oxygen at 2L/min via NC ordered. jo4 08:25 Pulse ox continuous ordered. jo4 08:25 CBC with Diff Ordered. EDMS 08:25 BMP Ordered. EDMS 08:25 -Blood Culture Ordered. EDMS 08:26 Chest, 2 View (pa\E\lat) Ordered. EDMS 08:34 -Blood Culture (Adults Only), peripheral from different site, or from device/port/PICC lbd etc. if present complete. 08:38 BLOOD CULTURES Ordered. EDMS 08:42 Albuterol-Ipratropium 3 ml Inhalation once ordered. jo4 08:42 Call Respiratory ordered. jo4 08:42 -Arterial Blood Gas Ordered. EDMS 08:44 ECG WITH READING ER PHYS+CARDIAG ordered. EDMS 08:45 CARDIAC MARKER PANEL Ordered. EDMS 08:45 Call Respiratory complete. kr3 09:02 Misc Social Science Analyst Order ordered. jo4 09:09 CBC with Diff Reviewed. sd1 09:09 Lactic Acid (Dubose tube on ice) Ordered. EDMS 09:12 BED REQUEST+ADM ordered. EDMS 09:12 -Influenza A&B Rapid Antigen - Nose Ordered. EDMS 09:12 Misc Social Science Analyst Order complete. lbd 09:20 -Arterial Blood Gas Reviewed. jo4 09:40 CONSISTENT CARBOHYDRATE+DIET ordered. EDMS 10:01 Moxifloxacin 400 mg IV at 400 mg/hr once over 60 mins ordered. jo4 10:08 -Influenza A&B Rapid Antigen - Nose Reviewed. sd1 10:17 Lactic Acid (Dubose tube on ice) Reviewed. sd1 10:22 Redraw CIP &Troponin (put time in details section) ordered. jo4 10:24 Repeat EKG (put time details section) ordered. jo4 10:26 Aspirin Chewable Tablet 324 mg PO once ordered. jo4 10:26 Redraw CIP &Troponin (put time in details section) complete. jrd 10:28 CARDIAC INJURY PROFILE Ordered. EDMS 10:28 TROPONIN Ordered. EDMS 10:29 ECG WITH READING ER PHYS ordered. EDMS 10:33 Repeat EKG (put time details section) complete. jrd 11:13 CARDIAC MARKER PANEL Reviewed. jo4 11:31 BMP Reviewed. jo4 11:34 Ultrasound Bilateral LE R/O DVT Ordered. EDMS 12:24 Chest, 2 View (pa\E\lat) Reviewed. sd1 13:02 CARDIAC INJURY PROFILE Reviewed. jo4 13:02 TROPONIN Reviewed. jo4 13:02 Ultrasound Bilateral LE R/O DVT Reviewed. jo4 14:13 Redraw CIP &Troponin (put time in details section) ordered. jo4 14:35 Redraw CIP &Troponin (put time in details section) complete. ml6 14:36 Cardiac Marker Panel Ordered. EDMS 15:14 Cardiac Marker Panel Reviewed. jo4 15:57 ECHOCARDIOGRAM,DOPPLER/COLOR FLOW+CARDIAG ordered. EDMS 16:17 CONSISTENT CARBOHYDRATE+DIET ordered. EDMS 16:34 Admission / Observation Status ordered. EDMS 16:35 2 GRAM SODIUM DIET ordered. EDMS 16:44 TROPONIN Ordered. EDMS 17:08 COMPLETE BLOOD COUNT Ordered. EDMS 17:15 Other consultation: Based on patient's clinical picture and confirmed RLL pneumonia jo4 with elevated WBC, a consult was put in to hospitalist for patient to be admitted. Spoke with Dr. Marshall who agreed to admit patient. Initial troponin returned and was elevated. Dr. Marshall called back and recommended that patient be transferred to a cardiac facility. I informed Dr. Marshall that patient's clinical picture appears more infectious and that pneumonia needs to be treated. Was advised to contact cardiology. Spoke to Dr. Urban who suggested that elevated troponin was possibly not an acute evolution and that there was more of an underlying respiratory component. He recommended CT angiography to rule out a PE. Patient's creatinine inhibits ability to administer contrast. Put in another call to hospitalist, this time to Dr. Sierra. By this time a second troponin had returned and was still elevated, but not much different from the initial level. Dr. Sierra suggested that underlying symptomatology was cardiac in nature and that he would need to investigate patient further before making any further decisions about patient's disposition. A subsequent troponin was drawn and was further elevated from the first two levels. A call was put in to interventional cardiology in [place], Dr. Bustamante. He recommended that patient's pneumonia be treated first with return to normal lab values before considering cardiac catheterization. Dr. Urban discussed case with Dr. Carmona, who will evaluate patient later this evening.. 17:25 ERYTHROCYTE SEDIMENTATION RATE Ordered. EDMS 17:25 C REACTIVE PROTEIN QUANTITATIV Ordered. EDMS 17:25 PROTHROMBIN TIME PROFILE\E\INR Ordered. EDMS 17:27 BRAIN NATIURETIC PEPTIDE Ordered. EDMS 18:25 COMPLETE BLOOD COUNT Ordered. EDMS 18:25 TROPONIN Ordered. EDMS 18:26 BASIC METABOLIC PROFILE Ordered. EDMS 18:36 cefTRIAXone 1 grams IVPB once over 30 mins; dilute in 50mL of NS or D5W ordered. kr3 19:15 azithromycin 500 mg IVPB once over 1 hrs; dilute in 250mL of D5W or NS ordered. jp6 19:28 URINALYSIS Ordered. EDMS 19:29 RENAL US Ordered. EDMS 19:29 CT Chest with contrast Ordered. EDMS 19:31 CT Chest with contrast Ordered. EDMS 19:32 TROPONIN Ordered. EDMS 19:32 TROPONIN Ordered. EDMS 19:32 TROPONIN Ordered. EDMS 19:32 TROPONIN Ordered. EDMS 19:32 BASIC METABOLIC PROFILE Ordered. EDMS 19:32 BRAIN NATIURETIC PEPTIDE Ordered. EDMS 19:33 COMPLETE BLOOD COUNT Ordered. EDMS 20:00 CT Chest without contrast Ordered. EDMS 21:09 CARDIAC RISK PROFILE Ordered. EDMS 08/01 08:06 ECG/EKG was scanned into [employer] and attached to record. gb 08:07 Trend VS was scanned into [employer] and attached to record. gb 08:07 ECG/EKG was scanned into [employer] and attached to record. gb 09:22 T-Sheet-- Draft Copy was scanned into [employer] and attached to record. [facility] 10:55 Radiology Report was scanned into [employer] and attached to record. gb Administered Medications: 07/31 09:12 Drug: Albuterol-Ipratropium 3 ml [ipratropium-albuterol 0.5 mg-3 mg(2.5 mg base)/3 mL js nebulization soln (3 mL)] Route: Inhalation; 10:09 Drug: Moxifloxacin 400 mg [moxifloxacin 400 mg/250 mL-sodium chloride(iso) intravenous kr3 piggyback] Route: IV; Rate: 400 mg/hr; Infused Over: 60 mins; Site: right hand; 11:13 Follow up: IV Status: Completed infusion; IV Intake: 250ml kr3 10:35 Drug: Aspirin 324 mg [aspirin 81 mg chewable tablet (4 tabs)] Route: PO; kr3 18:36 Drug: cefTRIAXone 1 grams [ceftriaxone 1 gram solution for injection] Route: IVPB; kr3 Infused Over: 30 mins; Site: right hand; 19:15 Drug: azithromycin 500 mg [azithromycin 500 mg intravenous solution] Route: IVPB; jp6 Infused Over: 1 hrs; Site: right hand; Signatures: Dispatcher [employer] EDMS Alejandra Valentin MD MD sd1 Sheridna Bucio, Attic Blower Unit lbd Tania Das, Reg Reg gb Merary Sexton, Reg Reg lg Nely Gutierrez,RN RN kr3 Eric Blake, RN RN ml6 Michelle Moreno,RN RN pml Steffen Oneill, CHRISTELLE SCENE PAINTER d Danette Perdomo DO DO Taty SmallsRN RN sylvie6 Alejandra Norwood James js The chart was reviewed and I authenticate all verbal orders and agree with the evaluation and treatment provided.Corrections: (The following items were deleted from the chart) 08:45 08:42 CARDIAC MARKER PANEL+LAB ordered. EDMS EDMS 10:23 10:19 TROPONIN+LAB ordered. EDMS EDMS 15:16 15:08 CONSISTENT CARBOHYDRATE+DIET ordered. EDMS EDMS 16:05 15:57 ECHOCARDIOGRAM,DOPPLER/COLOR FLOW+CARDIAG ordered. EDMS EDMS 17:01 16:35 ECHOCARD,DOPPLER/COLOR FLOW ordered. EDMS EDMS 17:30 16:44 BRAIN NATIURETIC PEPTIDE ordered. EDMS EDMS 21:09 19:33 CARDIAC RISK PROFILE ordered. EDMS EDMS Attachments: 08:16 [facility] Payment Agreement lg 08/01 08:06 ECG/EKG gb 08:07 ECG/EKG gb 09:22 T-Sheet-- Draft Copy [facility] Chart Complete MTDD
--- NOTE | 2016-08-02 22:22 | EDDOCDS ---
Physician Documentation [facility] Name: Booker Moore Age: 76 yrs Sex: Male : 1940 Arrival Date: 07/31/2016 Time: 07:29 Bed 5 Private MD: Disposition: 07/31 09:40 I have independently interviewed and examined the patient, and I agree with the sd1 investigation, diagnosis and treatment plan as documented by the Resident. Disposition: 07/31/16 16:33 Hospitalization ordered by Darling Sierra for Inpatient Admission. Preliminary diagnosis is Pneumonia, unspecified organism. - Bed requested for PCU. - Status is Inpatient Admission. jp6 - Condition is Stable. - Problem is new. - Symptoms are unchanged. Historical: - Allergies: no known allergies; - Home Meds: 1. amlodipine 10 mg Oral tab 1 tab once daily 2. irbesartan 300 mg oral tab 1 tab once daily 3. cefdinir 300 mg Oral cap 1 cap every 12 hours 4. prednisone 10 mg Oral tab once daily 5. Xarelto 15 mg oral tab daily 6. aspirin 81 mg Oral chew 1 tab once daily 7. hydrochlorothiazide 25 mg Oral tab 1 tab once daily 8. nadolol 40 mg oral tab 1 tab once daily 9. Januvia 100 mg oral tab 1 tab once daily - PMHx: Hypertension; Diabetes - NIDDM: controlled; Atrial Fib; - PSHx: Lithotripsy; Coronary Stents; Prostatectomy; Hernia repair; - Social history: Smoking status: Patient states former smoker of tobacco. No barriers to communication noted, The patient speaks fluent Cymraes, Speaks appropriately for age. - Family history: Not pertinent. - : The pt / caregiver states he / she is on anticoagulants: Xarelto Home medication list is obtained from the patient. - Exposure Risk Screening:: None identified. Vital Signs: 07:44 BP 163 / 102; Pulse 100; Resp 22; Pulse Ox 89% on R/A; Weight 90.72 kg / 200 lbs; pml Height 5 ft. 9 in. (175.26 cm); Pain 0/10; 07:56 Temp 99.8(TE); Pulse Ox 94% on 3 lpm NC; kr3 08:35 BP 155 / 96; Pulse 108; Resp 18; Pulse Ox 97% on 2 lpm NC; kr3 09:19 BP 147 / 100 (auto/); kr3 09:19 Pulse 116 MON; Pulse Ox 93% on 2 lpm NC; kr3 09:49 BP 165 / 93 (auto/); kr3 09:49 Pulse 96 MON; Pulse Ox 90% on 2 lpm NC; kr3 10:38 Pulse 94; Resp 18; Pulse Ox 91% on 2.5 lpm NC; kr3 11:11 BP 116 / 72 (auto/); kr3 11:11 Pulse 88 MON; Resp 18; Pulse Ox 93% on 2.5 lpm NC; kr3 11:19 BP 137 / 71 (auto/); kr3 11:19 Pulse 90 MON; Resp 18; Temp 97.6(O); Pulse Ox 92% on 2.5 lpm NC; kr3 11:49 BP 141 / 80 (auto/); kr3 11:49 Pulse 94 MON; Pulse Ox 90% on 2.5 lpm NC; kr3 12:19 BP 122 / 74 (auto/); kr3 12:19 Pulse 86 MON; Pulse Ox 2.5 lpm NC; kr3 12:49 BP 152 / 79 (auto/); kr3 12:49 Pulse 94 MON; Pulse Ox 93% on 2.5 lpm NC; kr3 15:10 Pulse 86 MON; kr3 16:02 BP 126 / 87 (auto/); kr3 16:32 BP 159 / 94 (auto/); kr3 16:32 Pulse 108 MON; Resp 16; Temp 96.7(O); kr3 17:02 BP 141 / 86 (auto/); kr3 17:02 Pulse 82 MON; kr3 17:32 BP 155 / 72 (auto/); kr3 17:32 Pulse 82 MON; kr3 19:32 BP 132 / 80 (auto/); jp6 19:32 Pulse 126 MON; Pulse Ox 96% ; jp6 19:52 Pulse 112 MON; Pulse Ox 95% ; jp6 20:02 BP 120 / 76 (auto/); jp6 20:02 Pulse 84 MON; jp6 21:09 BP 127 / 74; Pulse 92; Resp 20; Temp 97.1(O); Pulse Ox 93% on 4 lpm NC; Pain 0/10; jmv 07:44 Body Mass Index 29.53 (90.72 kg, 175.26 cm) pml MDM: 08:00 Financial registration complete. lg 08:16 [facility] [place] was [place] into flipClass and attached to record. lg 08:24 -Blood Culture (Adults Only), peripheral from different site, or from device/port/PICC jo4 etc. if present ordered. 08:24 Corn Grinder ordered. jo4 08:24 Oxygen at 2L/min via NC ordered. jo4 08:25 Pulse ox continuous ordered. jo4 08:25 CBC with Diff Ordered. EDMS 08:25 BMP Ordered. EDMS 08:25 -Blood Culture Ordered. EDMS 08:26 Chest, 2 View (pa\E\lat) Ordered. EDMS 08:34 -Blood Culture (Adults Only), peripheral from different site, or from device/port/PICC lbd etc. if present complete. 08:38 BLOOD CULTURES Ordered. EDMS 08:42 Albuterol-Ipratropium 3 ml Inhalation once ordered. jo4 08:42 Call Respiratory ordered. jo4 08:42 -Arterial Blood Gas Ordered. EDMS 08:44 ECG WITH READING ER PHYS+CARDIAG ordered. EDMS 08:45 CARDIAC MARKER PANEL Ordered. EDMS 08:45 Call Respiratory complete. kr3 09:02 Misc Alodize Machine Helper Order ordered. jo4 09:09 CBC with Diff Reviewed. sd1 09:09 Lactic Acid (Dubose tube on ice) Ordered. EDMS 09:12 BED REQUEST+ADM ordered. EDMS 09:12 -Influenza A&B Rapid Antigen - Nose Ordered. EDMS 09:12 Misc Alodize Machine Helper Order complete. lbd 09:20 -Arterial Blood Gas Reviewed. jo4 09:40 CONSISTENT CARBOHYDRATE+DIET ordered. EDMS 10:01 Moxifloxacin 400 mg IV at 400 mg/hr once over 60 mins ordered. jo4 10:08 -Influenza A&B Rapid Antigen - Nose Reviewed. sd1 10:17 Lactic Acid (Dubose tube on ice) Reviewed. sd1 10:22 Redraw CIP &Troponin (put time in details section) ordered. jo4 10:24 Repeat EKG (put time details section) ordered. jo4 10:26 Aspirin Chewable Tablet 324 mg PO once ordered. jo4 10:26 Redraw CIP &Troponin (put time in details section) complete. jrd 10:28 CARDIAC INJURY PROFILE Ordered. EDMS 10:28 TROPONIN Ordered. EDMS 10:29 ECG WITH READING ER PHYS ordered. EDMS 10:33 Repeat EKG (put time details section) complete. jrd 11:13 CARDIAC MARKER PANEL Reviewed. jo4 11:31 BMP Reviewed. jo4 11:34 Ultrasound Bilateral LE R/O DVT Ordered. EDMS 12:24 Chest, 2 View (pa\E\lat) Reviewed. sd1 13:02 CARDIAC INJURY PROFILE Reviewed. jo4 13:02 TROPONIN Reviewed. jo4 13:02 Ultrasound Bilateral LE R/O DVT Reviewed. jo4 14:13 Redraw CIP &Troponin (put time in details section) ordered. jo4 14:35 Redraw CIP &Troponin (put time in details section) complete. ml6 14:36 Cardiac Marker Panel Ordered. EDMS 15:14 Cardiac Marker Panel Reviewed. jo4 15:57 ECHOCARDIOGRAM,DOPPLER/COLOR FLOW+CARDIAG ordered. EDMS 16:17 CONSISTENT CARBOHYDRATE+DIET ordered. EDMS 16:34 Admission / Observation Status ordered. EDMS 16:35 2 GRAM SODIUM DIET ordered. EDMS 16:44 TROPONIN Ordered. EDMS 17:08 COMPLETE BLOOD COUNT Ordered. EDMS 17:15 Other consultation: Based on patient's clinical picture and confirmed RLL pneumonia jo4 with elevated WBC, a consult was put in to hospitalist for patient to be admitted. Spoke with Dr. Marshall who agreed to admit patient. Initial troponin returned and was elevated. Dr. Marshall called back and recommended that patient be transferred to a cardiac facility. I informed Dr. Marshall that patient's clinical picture appears more infectious and that pneumonia needs to be treated. Was advised to contact cardiology. Spoke to Dr. Urban who suggested that elevated troponin was possibly not an acute evolution and that there was more of an underlying respiratory component. He recommended CT angiography to rule out a PE. Patient's creatinine inhibits ability to administer contrast. Put in another call to hospitalist, this time to Dr. Sierra. By this time a second troponin had returned and was still elevated, but not much different from the initial level. Dr. Sierra suggested that underlying symptomatology was cardiac in nature and that he would need to investigate patient further before making any further decisions about patient's disposition. A subsequent troponin was drawn and was further elevated from the first two levels. A call was put in to interventional cardiology in [place], Dr. Bustamante. He recommended that patient's pneumonia be treated first with return to normal lab values before considering cardiac catheterization. Dr. Urban discussed case with Dr. Carmona, who will evaluate patient later this evening.. 17:25 ERYTHROCYTE SEDIMENTATION RATE Ordered. EDMS 17:25 C REACTIVE PROTEIN QUANTITATIV Ordered. EDMS 17:25 PROTHROMBIN TIME PROFILE\E\INR Ordered. EDMS 17:27 BRAIN NATIURETIC PEPTIDE Ordered. EDMS 18:25 COMPLETE BLOOD COUNT Ordered. EDMS 18:25 TROPONIN Ordered. EDMS 18:26 BASIC METABOLIC PROFILE Ordered. EDMS 18:36 cefTRIAXone 1 grams IVPB once over 30 mins; dilute in 50mL of NS or D5W ordered. kr3 19:15 azithromycin 500 mg IVPB once over 1 hrs; dilute in 250mL of D5W or NS ordered. jp6 19:28 URINALYSIS Ordered. EDMS 19:29 RENAL US Ordered. EDMS 19:29 CT Chest with contrast Ordered. EDMS 19:31 CT Chest with contrast Ordered. EDMS 19:32 TROPONIN Ordered. EDMS 19:32 TROPONIN Ordered. EDMS 19:32 TROPONIN Ordered. EDMS 19:32 TROPONIN Ordered. EDMS 19:32 BASIC METABOLIC PROFILE Ordered. EDMS 19:32 BRAIN NATIURETIC PEPTIDE Ordered. EDMS 19:33 COMPLETE BLOOD COUNT Ordered. EDMS 20:00 CT Chest without contrast Ordered. EDMS 21:09 CARDIAC RISK PROFILE Ordered. EDMS 08/01 08:06 ECG/EKG was scanned into flipClass and attached to record. gb 08:07 Trend VS was scanned into flipClass and attached to record. gb 08:07 ECG/EKG was scanned into flipClass and attached to record. gb 09:22 T-Sheet-- Draft Copy was scanned into flipClass and attached to record. [facility] 10:55 Radiology Report was scanned into flipClass and attached to record. gb Administered Medications: 07/31 09:12 Drug: Albuterol-Ipratropium 3 ml [ipratropium-albuterol 0.5 mg-3 mg(2.5 mg base)/3 mL js nebulization soln (3 mL)] Route: Inhalation; 10:09 Drug: Moxifloxacin 400 mg [moxifloxacin 400 mg/250 mL-sodium chloride(iso) intravenous kr3 piggyback] Route: IV; Rate: 400 mg/hr; Infused Over: 60 mins; Site: right hand; 11:13 Follow up: IV Status: Completed infusion; IV Intake: 250ml kr3 10:35 Drug: Aspirin 324 mg [aspirin 81 mg chewable tablet (4 tabs)] Route: PO; kr3 18:36 Drug: cefTRIAXone 1 grams [ceftriaxone 1 gram solution for injection] Route: IVPB; kr3 Infused Over: 30 mins; Site: right hand; 19:15 Drug: azithromycin 500 mg [azithromycin 500 mg intravenous solution] Route: IVPB; jp6 Infused Over: 1 hrs; Site: right hand; Signatures: Dispatcher [employer] EDMS Alejandra Valentin MD MD sd1 Sheridan Bucio, Crop Quantitative Geneticist Unit lbd Tania Das, Reg Reg gb Merary Sexton, Reg Reg lg Nely Gutierrez,RN RN kr3 Eric Blake, RN RN ml6 Michelle Moreno,RN RN pml Steffen Oneill, CHRISTELLE ANALYTICAL ENGINEER d Danette Perdomo DO DO Taty SmallsRN RN [email or web address] Alejandra Norwood James js The chart was reviewed and I authenticate all verbal orders and agree with the evaluation and treatment provided.Corrections: (The following items were deleted from the chart) 08:45 08:42 CARDIAC MARKER PANEL+LAB ordered. EDMS EDMS 10:23 10:19 TROPONIN+LAB ordered. EDMS EDMS 15:16 15:08 CONSISTENT CARBOHYDRATE+DIET ordered. EDMS EDMS 16:05 15:57 ECHOCARDIOGRAM,DOPPLER/COLOR FLOW+CARDIAG ordered. EDMS EDMS 17:01 16:35 ECHOCARD,DOPPLER/COLOR FLOW ordered. EDMS EDMS 17:30 16:44 BRAIN NATIURETIC PEPTIDE ordered. EDMS EDMS 21:09 19:33 CARDIAC RISK PROFILE ordered. EDMS EDMS Attachments: 08:16 [facility] Payment Agreement lg 08/01 08:06 ECG/EKG gb 08:07 ECG/EKG gb 09:22 T-Sheet-- Draft Copy [facility] Chart Complete MTDD
[2016-08-02] MEDS: HEPARIN DRIP 25,000 UNITS in APPROPRIATE DILUENT 1 EA IV SCH (22:35)
[2016-08-03] VITALS (10 sets, daily range): BP systolic 114–146; BP diastolic 69–87; PULSE 87–88
--- NOTE | 2016-08-03 01:25 | ECGEPIP ---
Stationary ECG Study [facility] Test Date: 2016-08-02 Pat Name: PHIL LOPEZ Department: Room: [place] [address] Gender: M Origination Specialist: GENE : 1940 Requested By: SHALONDA JULIEN Order Number: [id number] Reading MD: Shalonda Julien Measurements Intervals [place] Rate: 90 P: SC: 0 QRS: -3 QRSD: 115 T: 158 QT: 379 QTc: 464 Interpretive Statements ATRIAL FIBRILLATION MODERATE INTRAVENTRICULAR CONDUCTION DELAY MARKED ST DEPRESSION, CONSIDER SUBENDOCARDIAL INJURY Compared to the last 2 tracings on 07/31/2016, no significant changes. Heart rate however remained under control Electronically Signed On 08-03-2016 1:25:12 EST by Shalonda Julien
[2016-08-03] MEDS: IPRATROPIUM 0.5MG/ALBUTEROL 2.5MG INH SOL UD 3ML (DUONEB)(J7620) NEB SCH ×4 (01:39→19:34)
[2016-08-03 05:35] LABS: MEAN CORPUSCULAR HEMOGLOBIN 31.1 pg (27.0-33.0); MEAN CORPUSCULAR HGB CONC 32.6 g/dl (32.0-36.5); MEAN CORPUSCULAR VOLUME 95.4 fl (80.0-96.0); RED CELL DISTRIBUTION WIDTH 13.2 % (11.5-14.5); WHITE BLOOD COUNT 13.7 K/mm3 (4.0-10.0)
[2016-08-03 05:51] LABS: CREATININE FOR GFR 2.16 MG/DL (0.70-1.30); GLOMERULAR FILTRATION RATE 31.7 (>42); POTASSIUM SERUM 3.9 MEQ/L (3.5-5.1)
--- NOTE | 2016-08-03 07:34 | REPUSA ---
CT of the chest without contrast Clinical statement: Shortness of breath. Technique: Multiple axial CT images were obtained with 5 mm cuts through the chest without administra tion of contrast. No comparison is available. Findings: There is no thoracic lymphadenopathy. The visualized portions of the thyroid gland is unrem arkable. There is a right lower lobe infiltrate with a small right upper lobe infiltrate, associated with a small right-sided pleural effusion. Minimal patchy interstitial changes are seen in the left l ower lobe as well. Limited imaging of the upper abdomen does not demonstrate any acute abnormalities. There are no suspicious osseous lesions. Impression: 1. Right lower lobe pneumonia. 2. Minimal right upper lobe infiltrate. 3. Patchy infiltrate/atelectasis in the left lower lobe. 4. Small right-sided pleural effusion.
--- NOTE | 2016-08-03 08:30 | REP ---
Renal and bladder ultrasound: There are no comparison ultrasound studies. The patient is a prior CT of the abdomen and pelvis dated 04/21/2006. Right Kidney: The right kidney is atrophic size measuring 8.8 x 4.5 x 4.5 cm. Renal cortical echogenicity is increased. There is no hydronephrosis. There is no calculus or mass. There is a 2 cm upper pole cyst. Left kidney: The left kidney is normal size measuring 12.4 x 5.6 x 6.3 cm. Renal cortical echogenicity is normal. There is no hydronephrosis, calculus or mass. There is an upper pole cyst in mid pole cyst. Bladder ultrasound: The bladder appears adequately distended. No bladder wall masses are identified. Impression: Bilateral renal cortical cysts. Atrophic size of the right kidney. Signed by Jonathan Guillory MD 08/01/2016 08:56 A
--- NOTE | 2016-08-03 08:32 | CR ---
DATE OF CONSULTATION: 08/01/2016 REFERRING PROVIDER: Dr. Darling Sierra REASON FOR CONSULTATION: Abnormal serum troponin. HISTORY OF PRESENT ILLNESS: 76-year-old male with a history of coronary artery disease came to the hospital because of increasing shortness of breath for about 1-2 weeks. He denies any chest pain or palpitations. Upon arrival at the emergency room (ER), his vital signs revealed a blood pressure of 163/102 with a pulse of 100, respirations 22, and his oxygen saturation was 89% on room air, with a temperature of 99.8 degrees Fahrenheit. On 3 liters nasal cannula, his oxygen saturation was 94%. He was found to have abnormal serum troponin and his chest x-ray revealed findings consistent with probably pneumonia. He was admitted for further management and monitoring and cardiology consult was called. Case was discussed yesterday with [facility] and conservative management was recommended unless changes in his condition. When I saw Mr. Booker Moore, he was lying supine in bed in no acute distress at rest, and he denies any complaints of chest pain or palpitations. His shortness of breath he stated has improved significantly and he has been ambulating. He could not walk that much prior to coming to the hospital. He denies any fever or chills. He has no nausea, vomiting, diarrhea, melena, or hematemesis. He denies any bleeding problem. He has no focal manifestation. He was started yesterday on treatment for pneumonia with ceftriaxone and azithromycin and also he is being treated and considered in acute coronary syndrome in view of his abnormal serum troponin. PAST MEDICAL HISTORY: Positive for coronary artery disease. About 10 years ago he stated he was found to have an abnormal EKG and was referred for a cardiac catheterization and he had percutaneous transluminal coronary angioplasty (PTCA) with stent of one of his coronary arteries. He also has a history of hypertension, hyperlipidemia, atrial fibrillation, diabetes mellitus, and his labs revealed chronic kidney disease. He denies any history of myocardial infarction, congestive heart failure, significant valvular heart disease, CVA, cardiomyopathy, sudden cardiac . He denies thyroid disorders. PAST SURGICAL HISTORY: Positive for prostatectomy, hernia repair, and he had lithotripsy done in the past. Patient had bilateral pelvic lymph node dissection with radical retropublic prostatectomy. MEDICATIONS AT HOME: - amlodipine 10 mg by mouth daily - irbesartan 300 mg by mouth daily - cefdinir 300 mg by mouth every 12 hours which he had completed yesterday - Xarelto 15 mg by mouth daily - aspirin 81 mg by mouth daily - hydrochlorothiazide 25 mg by mouth daily - Nadolol 40 mg by mouth daily - Januvia 100 mg by mouth daily CURRENT MEDICATIONS: - azithromycin 400 mg IV daily - ceftriaxone 1 gram IV daily - aspirin 81 mg by mouth daily - Xarelto 15 mg by mouth daily - regular insulin coverage - atorvastatin 80 mg by mouth nightly - DuoNeb one nebulizer every 6 hours - D50 25 mL as needed for hypoglycemia - glucose tablets 16 grams as needed for hypoglycemia - glucagon 1 gram subcutaneous as needed for hypoglycemia - nitroglycerin sublingual 0.4 mg as needed for chest pain - Proventil MDI two puffs four times a day as needed for shortness of breath - Flonase nasal spray 0.05% in each nostril one puff daily as needed - DuoNeb one nebulizer every 2 hours as needed for shortness of breath and wheezing - Zofran 4 mg IV every 6 hours as needed for nausea or vomiting - amlodipine 10 mg by mouth daily - hydrochlorothiazide 25 mg by mouth daily - Nadolol 40 mg by mouth daily FAMILY HISTORY: Noncontributory, but positive for hypertension, diabetes mellitus, and atrial fibrillation. SOCIAL HISTORY: Patient lives with his and he denies any smoking. He has been smoking for a long time but has stopped prior to this hospitalization. He denies ethyl alcohol (EtOH) abuse. There is no known drug allergies. PHYSICAL EXAMINATION: Patient is alert and oriented, in no acute distress at rest and his last vital signs revealed a blood pressure of 120/80, with a pulse of 100, respirations 18, and his temperature was 95.6 degrees Fahrenheit, with an oxygen saturation of 95% on 2 liters nasal cannula. HEENT: Atraumatic. NECK: Supple with extended jugular. LUNGS: Reveal minimal crackles at the bases. No wheezing. HEART: Reveal irregularly irregular heart sounds without gallops. The point of maximum impulse (PMI) is slightly displaced inferiorly and laterally. I could not appreciate any murmurs. ABDOMEN: Soft and nontender, bowel sounds are active. EXTREMITIES: Reveal no pedal edema. NEUROLOGIC: Is negative for focal deficit. LABORATORY DATA: Electrocardiogram done on 07/31/2016, at 8:49:36 revealed atrial fibrillation at 125 beats per minute and marked ST-T abnormalities noted in the precordial leads as well as inferior leads and at that time there was no prior EKG for comparison. Repeat electrocardiogram on 07/31/2016, at 11:35:33 did not reveal any significant changes but slower heart rate. Chest xray done on 07/31/2016, revealed left lower lobe infiltrate. No manifestation of congestive heart failure or pleural effusion. Doppler of the lower extremities done on 07/31/2016, revealed no evidence of deep venous thrombosis but a right popliteal cyst measuring 3.2 x 0.[address] on 07/31/2016, and no official report is available at this present time. It was done without any contrast. IMPRESSION: 1. Abnormal serum troponin in this 76-year-old male with a history of coronary artery disease (CAD) diagnosed about 10 years ago and at that time patient had percutaneous transluminal coronary angioplasty (PTCA/stent) but I could not elaborate on that. He had an echocardiogram done yesterday and his left ventricular ejection fraction (LVEF) is mildly depressed at 40% with regional wall motion abnormalities. He denies any chest pain but was admitted with shortness of breath with activities, relieved with rest. He was found to have a right lung pneumonia and at this present time, he is being treated for his pneumonia. His EKG is markedly abnormal and patient will need further cardiac workup. He was started today on long-acting nitrate and I will discontinue the hydrochlorothiazide (HCTZ) for now and will monitor his BUN and creatinine. He will need further cardiac workup, a cardiac catheterization is strongly recommended and it seems that the case was discussed already with cut and print machine operator team in [place] and medical therapy was recommended for the pneumonia then transfer if needed if any changes in the condition, particularly if he develops any chest pain. He will be monitored on the current medications. 2. He is currently on a beta dyana, as well as a statin, aspirin, and I have started him on a long-acting nitrate. He is not on ARB at this present time, it was discontinued on admission. 3. Pneumonia and this is being addressed, on IV antibiotics. 4. Hypertension and he will be monitored while off the ARB and the hydrochlorothiazide. 5. Hyperlipidemia, on a statin. 6. History of diabetes mellitus and this is being addressed. 7. Chronic kidney disease and he will need to be monitored. 8. History of atrial fibrillation, chronic and persistent and currently on Xarelto. This will need to be stopped for a couple of days prior to his cardiac catheterization. It was a pleasure to participate in the care of Mr. Booker Moore for his underlying cardiac condition. He appears to be stable, he has no chest pain. I will continue to monitor him along with you. Please do not hesitate to call if any questions or any changes in his condition.
--- NOTE | 2016-08-03 08:33 | IPN ---
DATE: 08/02/2016 Mr. Booker Moore was seen earlier today. He was lying supine in bed in no acute distress and his was at bedside. He denies any chest pain or chest pressure or chest heaviness. His shortness of breath has improved. His cough has also improved. He denies any fever or chills. He has been ambulating. There is no report of bleeding. He continues to be on nasal cannula at 2 liters per minute. He was admitted on 07/31/2016 with increasing shortness of breath and palpitations and was found to have abnormal serum troponin. His chest x-ray revealed a right lower lobe infiltrate. He was started on intravenous antibiotics. His electrocardiogram (EKG) was also abnormal, consistent with ischemia but no prior EKG prior to admission for comparison. PHYSICAL EXAMINATION: The patient is alert and oriented, in no acute distress at rest. His vital signs today reveal a blood pressure of 133/82 with a pulse of 87, respirations 18, and his maximum temperature is 96.9 degrees Fahrenheit with an oxygen saturation of 95% on 2 liters nasal cannula. He has a positive fluid balance for 08/01/2016 of about 1.1 liter. HEENT: Examination of the head is normocephalic, atraumatic. NECK: Supple. No jugular venous distention (JVD). LUNGS: Reveal minimal crackles at the right base. No wheezing. HEART: Revealed irregularly irregular heart sounds without gallops. The point of maximum impulse (PMI) is slightly displaced inferiorly and laterally. There is no rub. There is a systolic murmur, grade 1 to 2/6 at the lower left sternal border and at the apex with radiation to the axilla. ABDOMEN: Soft and nontender. EXTREMITIES: Reveal only trace bilateral ankle edema. No cyanosis. NEUROLOGIC: Grossly is negative for focal deficit. LABORATORY DATA: CBC done today revealed a WBC of 13.0 with a hemoglobin of 12.7, hematocrit 38.6 and platelets 171,000. BMP done today revealed a sodium of 138, potassium 3.7, chloride 102, CO2 of 27, BUN 56, creatinine 1.95, GFR 35.9, fasting glucose 88 and calcium 8.5. Serum BNP is 538 and on admission it was 1480. Electrocardiogram done today revealed atrial fibrillation at 90 beats per minute and ST-T abnormalities noted that may be related to cardiac ischemia. Serum troponin on admission was 8.74 and then it came up to 13.6 and today is 11.40. Telemetry reviewed and revealed atrial fibrillation and ST abnormality. IMPRESSION: 1. Non ST elevation myocardial infarction in this 76-year-old male with a history of coronary artery disease and PTC about 10 years ago. He was admitted with shortness of breath and was found to have pneumonia and incidentally his serum troponin was elevated and there were also some EKG changes related to ischemia. His echocardiogram revealed a mildly to moderately depressed global left ventricular systolic function. This was discussed with him today, as well as his and cardiac catheterization is strongly recommended. We will continue his treatment for his pneumonia and today the Xarelto was discontinued and tomorrow he will be started on intravenous heparin in anticipation for his cardiac catheterization. We will repeat his BNP and if it is the same, he may need renal evaluation and gentle hydration prior to his cardiac catheterization. This was discussed with the hospitalist. In the meantime, we will continue with the aspirin, nitrate and the statin. He denies chest pain, and he has been ambulating. 2. Pneumonia. Left lower lobe and on IV antibiotics. There has not been any fever, and his WBC is improving. 3. Hypertension. This is being addressed and seems to be under control. He is no longer on the ARB and the hydrochlorothiazide. 4. Hyperlipidemia. On a statin. 5. Chronic kidney disease. He will be monitored. 6. Diabetes mellitus. Also being addressed. 7. Atrial fibrillation. He has been on Xarelto. It was discontinued today and he will be started on intravenous heparin. 8. Cardiomyopathy, ischemia in nature with a mildly to moderately depressed left ventricular systolic function but well compensated. He is not on MAGDA inhibitor or ARB in view of his underlying kidney disease. 9. History of kidney stones. It was a pleasure to participate in the care of Mr. Booker Moore for his underlying cardiac condition. We will continue to monitor along with you. At this present time, he appears to be stable. Please do not hesitate to call if there are any questions.
--- NOTE | 2016-08-03 08:41 | IPN ---
DATE: 08/03/2016 Mr. Moore tells me that he is feeling better. He is less short of breath, but still continues to have expectoration of brownish sputum. Denies any chest discomfort. Denies any recent history of chest discomfort. He does admit that about a week prior to his admission he had several days of abdominal discomfort that he felt was related to his antibiotics. Vital signs blood pressure is 133/87, heart rate is in 70s and low 80s. He has atrial fibrillation. He is afebrile. Saturation is 90-93% on room air. His fluid balance was about half a liter negative. Weight is documented 90.8 kg, which is unchanged. He is alert and oriented and appropriate. He does not appear to be in any distress. His jugular venous pulse is not elevated. Lungs reveal crackles, more on the right than the left. There is also some occasional expiratory wheeze. There are somewhat diminished breath sounds over right base. Heart exam irregularly irregular rhythm. I do not appreciate gallop, rub or murmur. Abdomen is obese, but is soft. No shifting dullness. No hepatosplenomegaly. There is no peripheral edema. Peripheral pulses are palpable. Laboratory hernández, basic metabolic panel reveals potassium 3.9, BUN 52, creatinine 2.2 for a GFR of 31 and glucose 160. His Troponin is down to 7. He peaked at 13.6. BNP 750. CBC reveals WBC count 13.7, hemoglobin 12.4, hematocrit 38 and platelet count 210,000. CURRENT MEDICATIONS: Zithromax, heparin, ceftriaxone, aspirin, isosorbide, atorvastatin 80, insulin per protocol, fluticasone, amlodipine and nadolol 40 mg a day. ECG: I reviewed the ECGs from the previous day. They all reveal rather extensive repolarization abnormalities with ST-segment depressions. He had an echocardiogram on 07/[address] Carmona. It revealed normal LV size with inferior wall hypokinesis and overall estimated EF approximately 40%. He had mild to moderate mitral insufficiency. Trace aortic insufficiency. Mild TR and trace pericardial effusion. ASSESSMENT/PLAN: Mr. Moore is a 76-year-old man who has a remote history of coronary intervention on two separate occasions. I will request those records (the patient believes that he was in [facility] and [facility]). He currently presents with pneumonia complicated by non-ST elevation myocardial infarction. There is approximately moderate reduction in LV systolic function, but I do not appreciate clinical congestive heart failure. At this point, it has been at least several days since his presentation and I believe that we probably could await a little bit extra time and give the antibiotic a chance to be more effective. I am also somewhat concerned about the fact that his renal function deteriorated mildly since his current admission. I will request records from [place] and [place], but tentatively will plan on pursuing cardiac catheterization later this week. As far as timing is concerned, I am not quite certain, it will depend on his clinical condition. Hopefully early tomorrow, but if his renal function should deteriorate further, we may need to wait a little bit longer. I am going to give him Plavix on top of his current medications in preparation for intervention.
[2016-08-03] MEDS: BISACODYL 10 MG SUPP PR SCH (09:00)
[2016-08-03] MEDS: CLOPIDOGREL 75 MG TAB PO SCH (09:16)
[2016-08-03] MEDS: NADOLOL 20MG TABLET PO SCH (09:17)
[2016-08-03] MEDS: amLODIPine 10 MG TAB PO SCH (09:17)
[2016-08-03] MEDS: SENOKOT S TAB PO SCH ×2 (09:17→22:18)
[2016-08-03] MEDS: ASPIRIN 81 MG ENTERIC TAB PO SCH (09:17)
[2016-08-03] MEDS: HumaLOG INSULIN (NovoLOG) PER UNIT SC SCH ×4 (09:18→21:00)
[2016-08-03] MEDS: ISOSORBIDE MON. (IMDUR) 30 MG XR TAB PO SCH (09:18)
--- NOTE | 2016-08-03 12:55 | IPNPDOC ---
Assessment/Plan Date Seen The patient was seen on 08/03/16. Problems Problems: (1) CAP (community acquired pneumonia) Status: Acute Problem Text: will continue ceftriaxone and azithromycin. cultures negative till date. (2) NSTEMI (non-ST elevated myocardial infarction) Status: Acute Problem Text: on betablocker, high dose statin xarelto stopped on 08/02/16 and started on heparin infusion cardiology following . Patient will need to be transferred to [place] for cardiac cath once the effect of xarelto is gone. has underlying cad so the stress of pneumonia may have caused him to have NSTEMI. 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 will continue with diuretics. On hydrochrolothiazide (4) CAD (coronary artery disease) Status: Chronic Problem Text: history of stent about 10 years ago (5) Diabetes Status: Chronic (6) Hypertension Status: Chronic Problem Text: on amlodipine, nadolol , HCTZ (7) Atrial fibrillation Status: Chronic Problem Text: rate controlled, on heparin gtt (8) Renal stones Status: Chronic Problem Text: history of lithotripsy in the past. (9) CKD (chronic kidney disease), stage IV Status: Chronic Problem Text: Labs from [place] shows a creatinine of 2.3 in November 2015 so creatinine is at baseline at present. Plan / VTE VTE Prophylaxis Ordered?: Yes Subjective Review of Systems CC/HPI The patient is a 76-year-old male admitted with a reason for visit of Shortness Of Breath. Events since last encounter no complaints Objective Physical Examination General Exam: Positive: Alert, No Acute Distress Eye Exam: Positive: Conjunctiva & lids normal, EOMI, PERRLA, Negative: Sclera icteric ENT Exam: Positive: Atraumatic, Mucous membr. moist/pink, Pharynx Normal Neck Exam: Positive: Supple, Negative: JVD, thyromegaly Chest Exam: Positive: Clear to auscultation, Normal air movement Heart Exam: Positive: Normal S1, Normal S2, Rate Normal, Regular Rhythm, Negative: Murmurs, Rubs Telemetry: Positive: No significant arrhythmia Abdomen Exam: Positive: Normal bowel sounds, Soft, Negative: Hepatospenomegaly, Tenderness Extremity Exam: Positive: Normal pulses, Negative: Clubbing, Cyanosis, Edema Vital Signs/I&O Vital Signs Date Time Temp Pulse Resp B/P Pulse Ox O2 Delivery O2 Flow Rate FiO2 08/03/16 12:00 96.6 77 18 146/72 97 Room Air 08/02/16 08:00 2.0 I&O- Last 24 Hours up to 6 AM 08/03/16 06:00 Intake Total 1130 ml Output Total 1525 ml Balance -395 ml Laboratory Data Labs 24H Laboratory Tests 2 08/02/16 16:31: Bedside Glucose (Misc Panel) 122H 08/02/16 20:22: Bedside Glucose (Misc Panel) 219H 08/02/16 21:52: Activated Partial Thromboplast Time 35.4 08/03/16 05:18: Activated Partial Thromboplast Time 111.2H 08/03/16 05:21: Anion Gap 10, B-Type Natriuretic Peptide 750H, Blood Urea Nitrogen 52H, Creatinine 2.16H, Sodium Level 138, Potassium Level 3.9, Chloride Level 99, Carbon Dioxide Level 29, Calcium Level 9.0, Total Creatine Kinase 72, Creatine Kinase MB 2.8, Creatine Kinase MB Relative Index 3.88, Glomerular Filtration Rate 31.7L, Troponin I 7.06#*H 08/03/16 11:25: Bedside Glucose (Misc Panel) 110 08/03/16 12:11: Activated Partial Thromboplast Time 95.8H CBC/BMP Laboratory Tests 08/03/16 05:21 Calcium Level 9.0, Total Creatine Kinase 72, Red Blood Count 4.00 L, Mean Corpuscular Volume 95.4, Mean Corpuscular Hemoglobin 31.1, Mean Corpuscular Hemoglobin Concent 32.6, Red Cell Distribution Width 13.2 FSBS Laboratory Tests Test 08/02/16 16:31 08/02/16 20:22 08/03/16 11:25 Range/Units Bedside Glucose (Misc Panel) 122 219 110 83-110 MG/DL Microbiology Microbiology 07/31/16 Blood Culture - Preliminary, Resulted No Growth after 72 hours. All specime... 07/31/16 Blood Culture - Preliminary, Resulted No Growth after 72 hours. All specime... 08/03/16 Stool Occult Blood ([facility]) - Final, Complete 07/31/16 Influenza Virus Type A Antigen - Final, Complete 07/31/16 Influenza Virus Type B Antigen - Final, Complete NURIA GUERRERO MD Aug 03, 2016 12:55 NURIA GUERRERO MD Aug 03, 2016 12:55
[2016-08-03] MEDS: HEPARIN DRIP 25,000 UNITS in APPROPRIATE DILUENT 1 EA IV SCH (17:35)
[2016-08-03] MEDS: cefTRIAXone SOD 1 GM in D5W MINI-BAG PLUS 50 ML IV SCH (17:40)
[2016-08-03] MEDS ORDERED: AZITHROMYCIN 250 MG TAB PO SCH (21:00)
[2016-08-03] MEDS: ATORVASTATIN 20 MG TAB PO SCH (22:18)
[2016-08-04] MEDS: IPRATROPIUM 0.5MG/ALBUTEROL 2.5MG INH SOL UD 3ML (DUONEB)(J7620) NEB SCH ×3 (02:00→14:26)
[2016-08-04 04:33] VITALS: BP 118/77
[2016-08-04 05:40] LABS: MEAN CORPUSCULAR HEMOGLOBIN 31.7 pg (27.0-33.0); MEAN CORPUSCULAR HGB CONC 33.4 g/dl (32.0-36.5); MEAN CORPUSCULAR VOLUME 94.9 fl (80.0-96.0); RED CELL DISTRIBUTION WIDTH 14.6 % (11.5-14.5); WHITE BLOOD COUNT 12.4 K/mm3 (4.0-10.0)
[2016-08-04 05:42] LABS: CALCIUM LEVEL 8.9 MG/DL (8.8-10.2); CREATININE FOR GFR 1.9 MG/DL (0.70-1.30); GLOMERULAR FILTRATION RATE 36.8 (>42); POTASSIUM SERUM 3.8 MEQ/L (3.5-5.1)
[2016-08-04 05:56] LABS: INR 1.27
[2016-08-04 08:00] VITALS: BP 121/68
[2016-08-04] MEDS: HumaLOG INSULIN (NovoLOG) PER UNIT SC SCH ×2 (08:30→12:00)
[2016-08-04] MEDS: SENOKOT S TAB PO SCH (08:30)
[2016-08-04] MEDS: NADOLOL 20MG TABLET PO SCH (08:30)
[2016-08-04] MEDS: CLOPIDOGREL 75 MG TAB PO SCH (08:30)
[2016-08-04] MEDS: BISACODYL 10 MG SUPP PR SCH (08:31)
[2016-08-04] MEDS: ISOSORBIDE MON. (IMDUR) 30 MG XR TAB PO SCH (08:31)
[2016-08-04] MEDS: ASPIRIN 81 MG ENTERIC TAB PO SCH (08:31)
[2016-08-04] MEDS: amLODIPine 10 MG TAB PO SCH (08:31)
--- NOTE | 2016-08-04 10:36 | IPNPDOC ---
[facility] Cardiology Progress Note Date of Service/Time The patient was seen on 08/04/16 at 10:31. Cardiology Progress Note SUBJECTIVE: Mr Moore appears to be doing well, he is sitting in bed on a 45 incline, is conversant and pleasant. Has no active complaints. OBJECTIVE: 76-year-old man appears his stated age, looks well and is sitting up in bed, in no active distress. Doesn't and conversant. PHYSICAL EXAMINATION: VITAL SIGNS: Please see below. GENERAL APPEARANCE: Well-appearing, in no distress. HEENT: NCAT, EOMI, nares patent bilaterally, tongue midline, moist mucous membranes. No JVD appreciated. LUNGS: Clear to auscultation bilaterally, no wheezing, rales, rhonchi appreciated, somewhat diminished breath sounds in right lower base. Air expansion bilaterally HEART: S1, S2. No murmurs, gallops, rubs appreciated. ABDOMEN: Soft, nondistended SKIN: Intact EXTREMITIES: No swelling, cyanosis or clubbing appreciated NEUROLOGICAL: No focal deficits appreciated PSYCHIATRIC: Affect is appropriate LABORATORY WORK: Please see below. ASSESSMENT AND PLAN: Mr. Moore from a cardiology standpoint is stable enough for transfer to [facility] where he will undergo percutaneous intervention. Patient denied having any SOB, CP or palpitations. He has been up and ambulating without difficulty. He was started on Plavix therapy one day ago in anticipation of aforementioned intervention. Medically it appears he is also stable for transfer. No further recommendations from cardiology perspective this time. Vital Signs/I&O VS/I&O Vital Signs Date Time Temp Pulse Resp B/P Pulse Ox O2 Delivery O2 Flow Rate FiO2 08/04/16 08:00 96.0 88 18 121/68 96 Room Air 08/02/16 08:00 2.0 I&O- Last 24 Hours up to 6 AM 08/04/16 06:00 Intake Total 1563 ml Output Total 1350 ml Balance 213 ml Laboratory Data 24H LABS Laboratory Tests 2 08/03/16 11:25: Bedside Glucose (Misc Panel) 110 08/03/16 12:11: Activated Partial Thromboplast Time 95.8H 08/03/16 16:52: Bedside Glucose (Misc Panel) 129H 08/03/16 17:48: Activated Partial Thromboplast Time 85.0H 08/03/16 20:10: Bedside Glucose (Misc Panel) 171H 08/04/16 05:09: Activated Partial Thromboplast Time 79.0H, Anion Gap 8, Blood Urea Nitrogen 46H , Creatinine 1.90H, Sodium Level 139, Potassium Level 3.8, Chloride Level 103, Carbon Dioxide Level 28, Calcium Level 8.9, Glomerular Filtration Rate 36.8L, Prothromb Time International Ratio 1.27, Prothrombin Time 16.0H CBC/BMP Laboratory Tests 08/04/16 05:09 Calcium Level 8.9, Red Blood Count 3.66 L, Mean Corpuscular Volume 94.9, Mean Corpuscular Hemoglobin 31.7, Mean Corpuscular Hemoglobin Concent 33.4, Red Cell Distribution Width 14.6 H FSBS Laboratory Tests Test 08/03/16 11:25 08/03/16 16:52 08/03/16 20:10 Range/Units Bedside Glucose (Misc Panel) 110 129 171 83-110 MG/DL Microbiology Microbiology 07/31/16 Blood Culture - Preliminary, Resulted No Growth after 72 hours. All specime... 07/31/16 Blood Culture - Preliminary, Resulted No Growth after 72 hours. All specime... 08/03/16 Stool Occult Blood ([facility]) - Final, Complete 07/31/16 Influenza Virus Type A Antigen - Final, Complete 07/31/16 Influenza Virus Type B Antigen - Final, Complete GME ATTESTATION GME ATTESTATION My preceptor for this patient encounter was physically present in the building during the encounter and was fully available. As needed, all aspects of the patient interview, examination, medical decision making process, and medical care plan development were reviewed and approved by the preceptor. Preceptor is aware and concurs with the plan as stated in the body of this note and will attest to such by his/her cosignature. PALOMO ONTIVEROS DO Aug 04, 2016 10:36
[2016-08-04 12:00] VITALS: BP 124/59
--- NOTE | 2016-08-17 17:02 | DSES ---
DATE OF ADMISSION: 07/31/2016 DATE OF DISCHARGE: 08/04/2016 PRIMARY CARE PROVIDER: Dr. Cadet CONSULTATIONS DURING ADMISSION: Dr. Benson. REASON FOR CONSULTATION: Non-ST elevation myocardial infarct, reduction left ventricle (LV) systolic function. ADMISSION DIAGNOSES: 1. Dyspnea on exertion likely secondary to pneumonia. 2. Vyc-CV-rbffvgoim myocardial infarction (NSTEMI). 3. Hypertension. 4. Kidney disease. 5. Type 2 diabetes. 6. History of coronary artery disease. HISTORY OF PRESENT ILLNESS: The patient is a 76-year-old male with history of known coronary artery disease and stents 10 years ago in [place], presented to the emergency room after he has been having persistent rhinorrhea with clear discharge and cough while lying down for greater than 6 months. He has been to ENT, Urgent Care on several occasion as well as his primary care provider. He completed four courses of antibiotics. Continued to have these episodes of shortness of breath. However, the past week he has been having progressively worsening shortness of breath, dyspnea on exertion. He is given a course of cefdinir July 23. Today he had 8 days of antibiotics. In the emergency room, the patient denied any chest pain, denied any cough. Denies any fevers or chills, nausea or vomiting. Only complaining of shortness of breath. In the emergency room the patient was found to have dyspnea on exertion, had an elevated rising troponin and EKG did not suggest any ST elevation. Dr. Urban was contacted in the emergency room as well as interventional cardiology Dr. Grove from [place]. It was felt that the patient would be best treated for acute pneumonia, as he would not benefit from cardiac catheter at this time, but that he would need one in the near future. The patient was admitted and was started on IV antibiotics. HOSPITAL COURSE: Dr. Benson was consulted. The patient underwent an echocardiogram, which showed an ejection fraction (EF) of 40% apex including anterior apical septum appears to be markedly hypokinetic. Had trace pericardial effusion, otherwise no tamponade. Normal atrial septum. Normal left atrium, mildly calcified aortic valve, mildly calcified mitral valve. Normal tricuspid. Aortic valve sclerosis with trace aortic regurgitation, but no stenosis. The patient was started on IV heparin. Once the patient was medically cleared and his pneumonia was under control with the shortness of breath, Dr. Grove from [facility] was contacted and the patient was accepted in transfer. He was transferred on IV heparin. DISCHARGE INSTRUCTIONS: He is to follow up with primary care provider after discharge, diet cardiac, activities as tolerated. DISCHARGE MEDICATIONS: - albuterol sulfate - ProAir HFA - amlodipine 10 mg - aspirin 81 mg - Flonase - azithromycin 500 mg by mouth daily - Plavix 75 mg by mouth daily - IV heparin - ceftriaxone 1 gram by mouth daily - Xarelto 50 mg by mouth daily - Imdur 30 mg by mouth daily - insulin sliding scale - Lipitor 80 mg at bedtime - nadolol 40 mg daily DISCHARGE CONDITION: Guarded.
== END 2016-08-04 15:06 | disposition short-term general hospital (02) | DRG 280 ==
LOC: M ED 07:29 → M ED INP 16:30 → M PCU 21:25
PROVIDERS: ADMIT Internal Medicine; ATTEND Internal Medicine
DX: I21.4 Non-ST elevation (NSTEMI) myocardial infarction (principal); J18.9 Pneumonia, unspecified organism; I50.21 Acute systolic (congestive) heart failure; N18.4 Chronic kidney disease, stage 4 (severe); N17.9 Acute kidney failure, unspecified; I12.0 Hypertensive chronic kidney disease with stage 5 chronic kidney disease or end stage renal disease; E11.9 Type 2 diabetes mellitus without complications; N18.9 Chronic kidney disease, unspecified; I25.10 Atherosclerotic heart disease of native coronary artery without angina pectoris; Z79.899 Other long term (current) drug therapy; Z79.82 Long term (current) use of aspirin; Z79.4 Long term (current) use of insulin; Z87.891 Personal history of nicotine dependence; I48.91 Unspecified atrial fibrillation; E78.5 Hyperlipidemia, unspecified; I25.5 Ischemic cardiomyopathy